=== PATIENT | male | born 1950 | race Caucasian/White ===

== ENCOUNTER → 2016-07-25 | Outpatient (CLI) | payer BC ==
[~2016-07-25] MED LIST: DOXY-278 PO; PERCOCET PO
[2016-07-25 09:40] LABS: MEAN CORPUSCULAR HEMOGLOBIN 31.6 pg (27.0-33.0); MEAN CORPUSCULAR HGB CONC 35.1 g/dl (32.0-36.5); MEAN CORPUSCULAR VOLUME 90.2 fl (80.0-96.0); RED CELL DISTRIBUTION WIDTH 12.7 % (11.5-14.5); WHITE BLOOD COUNT 6.3 K/mm3 (4.0-10.0)
[2016-07-25 10:07] LABS: ALBUMIN 3.6 GM/DL (3.2-5.2); ALBUMIN/GLOBULIN RATIO 1.09 (1.00-1.93); ALKALINE PHOSPHATASE 116 U/L (45-117); ALT/SGPT 19 U/L (12-78); ANION GAP 9 MEQ/L (8-16); AST/SGOT 16 U/L (15-37); BILIRUBIN,TOTAL 0.5 MG/DL (0.2-1.0); BLOOD UREA NITROGEN 11 MG/DL (7-18); CALCIUM LEVEL 8.3 MG/DL (8.8-10.2); CARBON DIOXIDE LEVEL 27 MEQ/L (21-32); CHLORIDE LEVEL 107 MEQ/L (98-107); CHOLESTEROL LEVEL 131 MG/DL (<200); CREATININE FOR GFR 0.76 MG/DL (0.70-1.30); GLOMERULAR FILTRATION RATE > 60.0 (>49); GLUCOSE, FASTING 157 MG/DL (80-110); POTASSIUM SERUM 3.8 MEQ/L (3.5-5.1); SODIUM LEVEL 143 MEQ/L (136-145); TOTAL PROTEIN 6.9 GM/DL (6.4-8.2); TRIGLYCERIDES LEVEL 93 MG/DL (<150)
== END ==
LOC: M LAB 09:26
PROVIDERS: ATTEND Family Medicine
DX: I25.84 Coronary atherosclerosis due to calcified coronary lesion (principal)

== ENCOUNTER → 2016-10-25 | Outpatient (CLI) | payer BC ==
[2016-10-25 15:18] LABS: ANION GAP 7 MEQ/L (8-16); BLOOD UREA NITROGEN 16 MG/DL (7-18); CALCIUM LEVEL 8.9 MG/DL (8.8-10.2); CARBON DIOXIDE LEVEL 29 MEQ/L (21-32); CHLORIDE LEVEL 105 MEQ/L (98-107); CREATININE FOR GFR 0.77 MG/DL (0.70-1.30); GLOMERULAR FILTRATION RATE > 60.0 (>49); GLUCOSE, FASTING 180 MG/DL (80-110); POTASSIUM SERUM 4.7 MEQ/L (3.5-5.1); SODIUM LEVEL 141 MEQ/L (136-145)
== END ==
LOC: M SMT 07:52
PROVIDERS: ATTEND Family Medicine
DX: E11.65 Type 2 diabetes mellitus with hyperglycemia (principal)

== ENCOUNTER → 2016-12-08 | Outpatient (REF) | payer BC ==
[2016-12-08 13:59] LABS: ANION GAP 8 MEQ/L (8-16); BLOOD UREA NITROGEN 14 MG/DL (7-18); CALCIUM LEVEL 9.1 MG/DL (8.8-10.2); CARBON DIOXIDE LEVEL 26 MEQ/L (21-32); CHLORIDE LEVEL 101 MEQ/L (98-107); CREATININE FOR GFR 0.72 MG/DL (0.70-1.30); GLOMERULAR FILTRATION RATE > 60.0 (>49); GLUCOSE, FASTING 278 MG/DL (80-110); MAGNESIUM LEVEL 2.3 MG/DL (1.8-2.4); POTASSIUM SERUM 4.2 MEQ/L (3.5-5.1); SODIUM LEVEL 135 MEQ/L (136-145)
== END ==
LOC: M SFHCPLAZ 11:40
PROVIDERS: ATTEND Family Medicine
DX: E11.65 Type 2 diabetes mellitus with hyperglycemia (principal); R35.0 Frequency of micturition

== ENCOUNTER → 2016-12-22 | Outpatient (REF) | payer BC | LOC: M SFHCLERA 15:36 | PROVIDERS: ATTEND Nurse Practitioner Family | DX: R10.32 Left lower quadrant pain (principal) ==

== ENCOUNTER → 2016-12-25 | Outpatient (CLI) | payer BC ==
--- NOTE | 2016-12-25 10:27 | REP ---
Left hip two views: There are no comparisons. There is a crescentic calcification inferior to the left femoral head, possibly an a avulsion of the inferior acetabular cortex. This should be correlated with clinical point tenderness. CT might be considered for confirmation. The femoral head and neck are otherwise unremarkable. No other evidence of fracture or dislocation. Mineralization is normal. Impression: Possible avulsion of the left acetabulum inferiorly. Correlate with clinical point tenderness. Consider CT for confirmation. Signed by Clifford Alexis MD 12/25/2016 10:18 A
== END ==
LOC: M ADAMS 09:53
PROVIDERS: ATTEND Physician Assistant Medical
DX: M25.552 Pain in left hip (principal); R93.7 Abnormal findings on diagnostic imaging of other parts of musculoskeletal system

== ENCOUNTER → 2017-02-06 | Outpatient (CLI) | payer BC ==
[2017-02-06 10:23] LABS: ANION GAP 7 MEQ/L (8-16); BLOOD UREA NITROGEN 14 MG/DL (7-18); CALCIUM LEVEL 8.4 MG/DL (8.8-10.2); CARBON DIOXIDE LEVEL 30 MEQ/L (21-32); CHLORIDE LEVEL 105 MEQ/L (98-107); CREATININE FOR GFR 0.77 MG/DL (0.70-1.30); GLOMERULAR FILTRATION RATE > 60.0 (>49); GLUCOSE, FASTING 156 MG/DL (80-110); POTASSIUM SERUM 3.9 MEQ/L (3.5-5.1); SODIUM LEVEL 142 MEQ/L (136-145)
== END ==
LOC: M LAB 09:47
PROVIDERS: ATTEND Family Medicine
DX: E11.65 Type 2 diabetes mellitus with hyperglycemia (principal)

== ENCOUNTER → 2017-07-11 | Outpatient (CLI) | payer BC, MEDICARE ==
[2017-07-11 13:17] LABS: ANION GAP 7 MEQ/L (8-16); BLOOD UREA NITROGEN 12 MG/DL (7-18); CALCIUM LEVEL 8.5 MG/DL (8.8-10.2); CARBON DIOXIDE LEVEL 30 MEQ/L (21-32); CHLORIDE LEVEL 105 MEQ/L (98-107); CREATININE FOR GFR 0.62 MG/DL (0.70-1.30); GLOMERULAR FILTRATION RATE > 60.0 (>49); GLUCOSE, FASTING 184 MG/DL (70-100); POTASSIUM SERUM 4.2 MEQ/L (3.5-5.1); SODIUM LEVEL 142 MEQ/L (136-145)
[2017-07-11 13:26] LABS: ESTIMATED AVERAGE GLUCOSE 255 MG/DL (60-110); HEMOGLOBIN A1c 10.5 %
== END ==
LOC: M SMT 08:33
DX: E11.65 Type 2 diabetes mellitus with hyperglycemia (principal)
CPT/HCPCS: 83036

== ENCOUNTER → 2017-10-03 | Outpatient (CLI) | payer MEDICARE, BC ==
[2017-10-03 14:03] LABS: HEMATOCRIT 44.8 % (42.0-52.0); HEMOGLOBIN 15.5 g/dl (13.5-17.5); MEAN CORPUSCULAR HEMOGLOBIN 31.8 pg (27.0-33.0); MEAN CORPUSCULAR HGB CONC 34.6 g/dl (32.0-36.5); MEAN CORPUSCULAR VOLUME 91.8 fl (80.0-96.0); PLATELET COUNT, AUTOMATED 219 10^3/uL (150-450); RED BLOOD COUNT 4.88 10^6/uL (4.30-6.10); RED CELL DISTRIBUTION WIDTH 12.9 % (11.5-14.5); WHITE BLOOD COUNT 7.3 10^3/uL (4.0-10.0)
[2017-10-03 14:45] LABS: ESTIMATED AVERAGE GLUCOSE 226 MG/DL (60-110); HEMOGLOBIN A1c 9.5 %
[2017-10-03 14:53] LABS: ALBUMIN/GLOBULIN RATIO 1.14 (1.00-1.93); ALKALINE PHOSPHATASE 128 U/L (45-117); ALT/SGPT 22 U/L (12-78); ANION GAP 8 MEQ/L (8-16); AST/SGOT 13 U/L (7-37); BILIRUBIN,TOTAL 0.6 MG/DL (0.2-1.0); BLOOD UREA NITROGEN 17 MG/DL (7-18); CALCIUM LEVEL 8.7 MG/DL (8.8-10.2); CARBON DIOXIDE LEVEL 27 MEQ/L (21-32); CHLORIDE LEVEL 105 MEQ/L (98-107); CHOLESTEROL LEVEL 139 MG/DL (<200); CHOLESTEROL RISK RATIO 3.021 (<5); CREATININE FOR GFR 0.88 MG/DL (0.70-1.30); GLOMERULAR FILTRATION RATE > 60.0 (>49); GLUCOSE, FASTING 288 MG/DL (70-100); HDL CHOLESTEROL 46 MG/DL (>40); LDL CHOLESTEROL 65.2 MG/DL (<100); NON-HDL-C 93 MG/DL; SODIUM LEVEL 140 MEQ/L (136-145); TOTAL PROTEIN 7.5 GM/DL (6.4-8.2); TRIGLYCERIDES LEVEL 139 MG/DL (<150)
== END ==
LOC: M SMT 08:13
DX: K21.9 Gastro-esophageal reflux disease without esophagitis (principal); E11.65 Type 2 diabetes mellitus with hyperglycemia; E78.2 Mixed hyperlipidemia
CPT/HCPCS: 80053

== ENCOUNTER → 2018-04-17 | Outpatient (CLI) | payer MEDICARE, BC ==
[2018-04-17 10:36] LABS: ESTIMATED AVERAGE GLUCOSE 209 MG/DL (60-110); HEMOGLOBIN A1c 8.9 %
[2018-04-17 10:45] LABS: ANION GAP 8 MEQ/L (8-16); BLOOD UREA NITROGEN 13 MG/DL (7-18); CALCIUM LEVEL 8.9 MG/DL (8.8-10.2); CARBON DIOXIDE LEVEL 31 MEQ/L (21-32); CHLORIDE LEVEL 103 MEQ/L (98-107); CREATININE FOR GFR 0.77 MG/DL (0.70-1.30); GLOMERULAR FILTRATION RATE > 60.0 (>49); GLUCOSE, FASTING 207 MG/DL (70-100); POTASSIUM SERUM 4.7 MEQ/L (3.5-5.1); PSA SCREENING 0.7 NG/ML (< 4.0); SODIUM LEVEL 142 MEQ/L (136-145)
== END ==
LOC: M SMT 08:02
DX: Z12.5 Encounter for screening for malignant neoplasm of prostate (principal); E11.65 Type 2 diabetes mellitus with hyperglycemia
CPT/HCPCS: 83036

== ENCOUNTER → 2018-07-24 | Outpatient (REF) | payer MEDICARE, BC ==
[~2018-07-24] MED LIST changes: +ACYC200C8 PO; +ASPI1TAB PO; +ATOR80TA59 PO; +BASA100I SC; -DOXY-278 PO; +DOXY-350 PO; +JANU100T PO; +LOSA25TA14 PO; +METF-882 PO; +PANT40TA3 PO; +VICT18IN SC
== END ==
LOC: M LAB REF 18:30
PROVIDERS: ATTEND Physician Assistant
DX: J02.9 Acute pharyngitis, unspecified (principal)

== ENCOUNTER → 2018-07-26 | Outpatient (CLI) | payer MEDICARE, BC ==
[2018-07-26 10:22] LABS: BLOOD UREA NITROGEN 13 MG/DL (7-18); CALCIUM LEVEL 9.3 MG/DL (8.8-10.2); CARBON DIOXIDE LEVEL 31 MEQ/L (21-32); CHLORIDE LEVEL 105 MEQ/L (98-107); CREATININE FOR GFR 0.75 MG/DL (0.70-1.30); GLOMERULAR FILTRATION RATE > 60.0 (>49); GLUCOSE, FASTING 163 MG/DL (70-100); POTASSIUM SERUM 4.6 MEQ/L (3.5-5.1); SODIUM LEVEL 140 MEQ/L (136-145)
[2018-07-26 10:46] LABS: HEMOGLOBIN A1c 8.5 %
== END ==
LOC: M SMT 07:52
PROVIDERS: ATTEND Family Medicine
DX: E11.65 Type 2 diabetes mellitus with hyperglycemia (principal)

== ENCOUNTER 2018-08-16 11:45 | Day surgery (SDC) | payer MEDICARE, BC ==
[~2018-08-16] VITALS: Ht 172.7 cm; Wt 93.6 kg
[~2018-08-16 11:45] MED LIST changes: -ASPI1TAB PO; +ASPI81TA26 PO; +LIDOCAINE 2% INJ 100 MG/5 ML SDV (FOR ANES.) As Ordered ONE; +NS 1,000 ML IV ONE; +PROPOFOL 200 MG/20 ML VIAL As Ordered ONE; +fentaNYL 100 MCG/2 ML INJECTION (J3010) As Ordered ONE
--- NOTE | 2018-08-16 11:46 | ROOR ---
Patient Name: Varun Valencia Procedure Date: 08/16/2018 11:16 AM Date of : 1950 Age: 68 Room: [facility] Gender: Male Note Status: Finalized Procedure: Upper Endoscopy + Biopsies Indications: Heartburn Providers: Brian Magaña MD Referring MD: Filemon Sorenson MD Requesting Provider: Medicines: Monitored Anesthesia Care Complications: No immediate complications. Procedure: Pre-Anesthesia Assessment: - The heart rate, respiratory rate, oxygen saturations, blood pressure, adequacy of pulmonary ventilation, and response to care were monitored throughout the procedure. The Endoscope was introduced through the mouth, and advanced to the second part of duodenum. The upper GI endoscopy was accomplished without difficulty. The patient tolerated the procedure well. Findings: The Z-line was regular and was found 41 cm from the incisors. Multiple biopsies were obtained with cold forceps for evaluation to rule out Munoz's Esophagus randomly at the gastroesophageal junction. A small hiatal hernia was present. Localized mild inflammation characterized by congestion (edema) and erythema was found in the gastric antrum. Biopsies were taken with a cold forceps for Helicobacter pylori testing. The exam of the duodenum was otherwise normal. Impression: - Z-line regular, 41 cm from the incisors. - Small hiatal hernia. - Mucosal changes suspicious for gastritis. Biopsied. - Multiple biopsies were obtained at the gastroesophageal junction. - The examination was otherwise normal. Recommendation: - Patient has a contact number available for emergencies. The signs and symptoms of potential delayed complications were discussed with the patient. Return to normal activities tomorrow. Written discharge instructions were provided to the patient. - High fiber diet. - Discharge patient to home. - Continue present medications. - Await pathology results. - Telephone GI clinic for pathology results in 1 week. - Check Portal Online for Path Results.([email or web address] - Return to referring physician. - The findings and recommendations were discussed with the patient's family. Brian Magaña MD Brian Magaña MD 08/16/2018 11:45:59 AM Electronically signed by Brian Magaña MD Number of Addenda: 0 Note Initiated On: 08/16/2018 11:16 AM Estimated Blood Loss: Estimated blood loss: none.
--- NOTE | 2018-08-16 11:48 | ROOR ---
Patient Name: Varun Valencia Procedure Date: 08/16/2018 11:23 AM Date of : 1950 Age: 68 Room: [facility] Gender: Male Note Status: Finalized Procedure: Total Colonoscopy to Cecum + Biopsy Polypectomy Indications: Screening for colorectal malignant neoplasm Providers: Brian Magaña MD Referring MD: Filemon Sorenson MD Requesting Provider: Medicines: Monitored Anesthesia Care Complications: No immediate complications. Procedure: Pre-Anesthesia Assessment: - The heart rate, respiratory rate, oxygen saturations, blood pressure, adequacy of pulmonary ventilation, and response to care were monitored throughout the procedure. The Colonoscope was introduced through the anus and advanced to the cecum, identified by appendiceal orifice and ileocecal valve. The colonoscopy was performed without difficulty. The patient tolerated the procedure well. The quality of the bowel preparation was excellent. Findings: The perianal and digital rectal examinations were normal. Non-bleeding internal hemorrhoids were found during retroflexion. The hemorrhoids were small and Grade I (internal hemorrhoids that do not prolapse). Multiple small and large-mouthed diverticula were found in the recto-sigmoid colon, sigmoid colon and descending colon. A small polyp was found at 20 cm proximal to the anus. The polyp was sessile. The polyp was removed with a jumbo cold forceps. Resection was complete, but the polyp tissue was not retrieved. The exam was otherwise without abnormality on direct and retroflexion views. Impression: - Non-bleeding internal hemorrhoids. - Diverticulosis in the recto-sigmoid colon, in the sigmoid colon and in the descending colon. - One small polyp at 20 cm proximal to the anus, removed with a jumbo cold forceps. Resected and retrieved. - The examination was otherwise normal on direct and retroflexion views. - The exam was otherwise normal to the cecum. Recommendation: - Patient has a contact number available for emergencies. The signs and symptoms of potential delayed complications were discussed with the patient. Return to normal activities tomorrow. Written discharge instructions were provided to the patient. - High fiber diet. - Discharge patient to home. - Continue present medications. - Await pathology results. - Telephone GI clinic for pathology results in 1 week. - Repeat colonoscopy in 10 years for surveillance. Brian Magaña MD Brian Magaña MD 08/16/2018 11:48:39 AM Electronically signed by Brian Magaña MD Number of Addenda: 0 Note Initiated On: 08/16/2018 11:23 AM Estimated Blood Loss: Estimated blood loss: none.
[2018-08-16 12:12] VITALS: BP 118/74
== END 2018-08-16 14:30 | disposition home or self-care (01) ==
LOC: M OPP 11:45
PROVIDERS: ATTEND Internal Medicine Gastroenterology
DX: K64.0 First degree hemorrhoids (principal); K57.30 Diverticulosis of large intestine without perforation or abscess without bleeding; D12.6 Benign neoplasm of colon, unspecified; Z12.11 Encounter for screening for malignant neoplasm of colon; K44.9 Diaphragmatic hernia without obstruction or gangrene; K29.70 Gastritis, unspecified, without bleeding; R12 Heartburn
CPT/HCPCS: 43239; 45380; 88305; J3010

== ENCOUNTER → 2018-09-11 | Outpatient (CLI) | payer MEDICARE, BC ==
[~2018-09-11] MED LIST changes: -LIDOCAINE 2% INJ 100 MG/5 ML SDV (FOR ANES.) As Ordered ONE; -NS 1,000 ML IV ONE; -PROPOFOL 200 MG/20 ML VIAL As Ordered ONE; -fentaNYL 100 MCG/2 ML INJECTION (J3010) As Ordered ONE
[2018-09-11 09:56] LABS: BASO # 0.1 10^3/uL (0.0-0.2); BASO % 0.9 % (0.0-1.0); EOS # 0.4 10^3/uL (0.0-0.50); HEMATOCRIT 41.5 % (42.0-52.0); HEMOGLOBIN 14.1 g/dl (13.5-17.5); LYMPH % 26.3 % (24.0-44.0); MEAN CORPUSCULAR HEMOGLOBIN 31.1 pg (27.0-33.0); MEAN CORPUSCULAR VOLUME 91.4 fl (80.0-96.0); MONO # 0.7 10^3/uL (0.0-0.8); MONO % 8.5 % (0.0-5.0); NEUTROPHILS # 4.5 10^3/uL (1.8-7.7); NEUTROPHILS % 58.9 % (36.0-66.0); PLATELET COUNT, AUTOMATED 200 10^3/uL (150-450); RED BLOOD COUNT 4.54 10^6/uL (4.30-6.10); WHITE BLOOD COUNT 7.7 10^3/uL (4.0-10.0)
[2018-09-11 10:22] LABS: BLOOD UREA NITROGEN 15 MG/DL (7-18); CALCIUM LEVEL 8.5 MG/DL (8.8-10.2); CARBON DIOXIDE LEVEL 27 MEQ/L (21-32); CHLORIDE LEVEL 105 MEQ/L (98-107); CREATININE FOR GFR 0.77 MG/DL (0.70-1.30); GLOMERULAR FILTRATION RATE > 60.0 (>49); GLUCOSE, FASTING 242 MG/DL (70-100); POTASSIUM SERUM 4.4 MEQ/L (3.5-5.1); SODIUM LEVEL 139 MEQ/L (136-145)
== END ==
LOC: M LAB 08:11
PROVIDERS: ATTEND Family Medicine
DX: I25.119 Atherosclerotic heart disease of native coronary artery with unspecified angina pectoris (principal)

== ENCOUNTER → 2018-12-06 | Outpatient (CLI) | payer MEDICARE, BC ==
[~2018-12-06] MED LIST changes: +CARV6.25 PO; +NITR0.4S14 SL; +PLAV1TAB2 PO
[2018-12-06 12:13] LABS: HEMATOCRIT 45.1 % (42.0-52.0); MEAN CORPUSCULAR HEMOGLOBIN 30.8 pg (27.0-33.0); MEAN CORPUSCULAR HGB CONC 33.3 g/dl (32.0-36.5); MEAN CORPUSCULAR VOLUME 92.6 fl (80.0-96.0); PLATELET COUNT, AUTOMATED 210 10^3/uL (150-450); RED BLOOD COUNT 4.87 10^6/uL (4.30-6.10); WHITE BLOOD COUNT 8.4 10^3/uL (4.0-10.0)
[2018-12-06 12:22] LABS: HEMOGLOBIN A1c 9.5 %
[2018-12-06 12:36] LABS: ALBUMIN 3.6 GM/DL (3.2-5.2); ALT/SGPT 22 U/L (12-78); BILIRUBIN,TOTAL 0.3 MG/DL (0.2-1.0); BLOOD UREA NITROGEN 12 MG/DL (7-18); CALCIUM LEVEL 9.4 MG/DL (8.8-10.2); CARBON DIOXIDE LEVEL 28 MEQ/L (21-32); CHLORIDE LEVEL 102 MEQ/L (98-107); CHOLESTEROL LEVEL 138 MG/DL (<200); CHOLESTEROL RISK RATIO 3.285 (<5); CREATININE FOR GFR 0.79 MG/DL (0.70-1.30); FREE T4 0.92 NG/DL (0.76-1.46); GLOMERULAR FILTRATION RATE > 60.0 (>49); GLUCOSE, FASTING 220 MG/DL (70-100); HDL CHOLESTEROL 42 MG/DL (>40); LDL CHOLESTEROL 54 MG/DL (<100); NON-HDL-C 96 MG/DL; POTASSIUM SERUM 4.7 MEQ/L (3.5-5.1); SODIUM LEVEL 138 MEQ/L (136-145); TOTAL PROTEIN 7.1 GM/DL (6.4-8.2); TRIGLYCERIDES LEVEL 211 MG/DL (<150)
[2018-12-07 14:07] LABS: TESTOSTERONE FREE (DIRECT) 5.9 pg/mL (6.6-18.1)
== END ==
LOC: M SMT 08:02
PROVIDERS: ATTEND Family Medicine
DX: N52.9 Male erectile dysfunction, unspecified (principal); E78.2 Mixed hyperlipidemia; E11.65 Type 2 diabetes mellitus with hyperglycemia; I25.84 Coronary atherosclerosis due to calcified coronary lesion

== ENCOUNTER 2019-01-11 11:08 | Outpatient (RCR) | payer MEDICARE, BC ==
--- NOTE | 2018-12-14 09:28 | CARECAPL ---
Assessment Account #s: Initial Assessment General Diagnoses: Stent, AVR Date of event: Oct 16, 2018 Physician: Kalpesh Mcmullen Allergies: Coded Allergies: No Known Allergies (Unverified , 08/16/18) Date Entered Program: Dec 14, 2018 Risk strat for cardiac event: High Exercise Prescription Plan educate and increase endurance, flexibility and strength through monitored exercise. Modalities initiated: Treadmill (will add speed 1.8 for 10 minutes), Nustep (will add level 1 for 10 minutes), Arm Aerometer (will add resistance 1.0 for 8 minutes), Dumbells (will add 1lb 2 set 6-8 rep), Recumbent Bike (will add resistance of 1 for 5 minutes) Frequency: 2-3 Duration (Minutes) 30-60 minutes total exercise a day. 15-20 work intervals in minutes. prn rest intervals in minutes. Functional Capacity Goal Sustained Metabolic Equivalent of a task (MET) goal of 2.5-3.5 for 15-20 minutes. Intensity: 3-Moderate Progression (METS) Increase by: 0.5 METS every: 3-5 sessions Angina with ex: No Target Heart Rate rest + 35-40 per beta francisco j therapy. Resistance Training: Yes Weight (pounds): 1 Reps: 6-8 Hypertension: Yes Hypertension controlled with: Medication Resting 116/78 Meds carvedilol Medications Scheduled Acyclovir (Acyclovir), 400 MG PO DAILY, (Reported) Aspirin (Aspirin EC), 81 MG PO DAILY, (Reported) Atorvastatin Calcium (Atorvastatin Calcium), 80 MG PO DAILY, (Reported) Carvedilol (Carvedilol), 6.25 MG PO BID, (Reported) Clopidogrel Bisulfate (Plavix), 75 MG PO DAILY, (Reported) Insulin Glargine,Hum.rec.anlog (Basaglar Kwikpen U-100), 50 UNIT SC DAILY, (Reported) Losartan Potassium (Losartan Potassium), 25 MG PO DAILY, (Reported) Metformin HCl (Metformin ER Osmotic), 1,000 MG PO QAM, (Reported) Metformin HCl (Metformin ER Osmotic), 1,000 MG PO QHS, (Reported) Nitroglycerin (Nitroglycerin), 0.4 MG SL ASDIRECTED, (Reported) Pantoprazole Sodium (Pantoprazole Sodium), 40 MG PO DAILY, (Reported) Sitagliptin Phosphate (Januvia), 100 MG PO DAILY, (Reported) Discontinued Medications Liraglutide (Victoza 2-Kun), 1.2 MG SC DAILY, (Reported) Discontinued Reason: Pt states not taking Target Goals Individual exercise Rx (1) BP 140/90 or 130/80 if DM or CKD (1) Aerobic active 30+min 5 days per week (1) Nutrition Date: Dec 14, 2018 Assessment: Initial Assessment Lipids Total Cholesterol (138), High Density Lipids (HDL) (96), Low Density Lipids (LDL) (54), Triglycerides (211), Lipid med/supplement (atorvastatin 80 mg) Lipid- med/supplement atorvastatin Diabetes Diabetes: Yes Fasting Blood Sugar: 168 HbA1c (%): 9.5 Diabetes medication januvia 100mg daily, metformin 1000mg bid, glargine insulin 50 units daily Monitor Blood Sugar at home: Yes Frequency bid Weight Management Weight (lbs): 204.6 Height (inches): 68 Waist Circumference (Inches): 45 BMI: 31.01 Weight goal: 160 Special Diet: mediteranean diet Alcohol: special Alcohol Type: beer, wine Alcohol Amount: 2 Diet Access Tool: Rate your plate Score: 46 Referral to Diabetes education: No Referral to lipid clinic: No Referral to weight mangement p: No Target goal LDL-C<100 if triglycerides are >200 Non-HDL-C should be <130 (1) LDL-C<70 for high risk patients (4) HbA1c<7% (1) BMI<25 Waist cir<40in M/<35in F (1) Education Date: Dec 14, 2018 Assessment: Initial Assessment Learning Barriers: ready Knowledge Test Score: 9 Family Support: Yes Tobacco use: Yes Quit: >6 months (40 years ago quit cigarettes but does still smoke a pipe occasionally) Intervention Referral to smoking cessation: Yes Individual education and couns: No Tobacco Adjunct: No Education class schedule given: No Attended education classes: No Target Goals Complete cessation of tobacco use (1). Psychosocial Date: Dec 14, 2018 Assessment: Initial Assessment Psych Test (Initial/Discharge) Tool Used: CESD Score: 14 Intervention Physician Consult: No Physician Referral: No Psychotropic medication none Target Goal Assess presence or absence of depression using a valid screening tool (1). Maximize coping skills (2). Positive support system (2). Patient/Program Goal Preventative Medication: Yes Aspirin, Yes Clopidogrel, Yes Beta blockade, Yes Statin/OTR lipid Lowering, Yes Other (angiotensin receptor francisco j) Fall Risk Assess: Yes (no fall risk) Provider Assessment Provider Assessment: Proceed with rehab Soo De León RN Dec 14, 2018 09:27
--- NOTE | 2019-01-08 17:18 | CARECAPL ---
Assessment Account #s: Re-Assessment I General Diagnoses: Stent, AVR Date of event: Oct 16, 2018 Physician: Kalpesh Mcmullen Allergies: Coded Allergies: No Known Allergies (Unverified , 08/16/18) Date Entered Program: Dec 14, 2018 Risk strat for cardiac event: High Exercise Date: Jan 08, 2019 Assessment: Re-Assessment I Stages of change: Preperation Exercise Prescription Plan TO EDUCATE AND BUILD ENDURANCE THROUGH MONITORED EXERCISE Modalities initiated: Treadmill (METS=3.53/RPE=3), Nustep (METS=3.1/RPE=3), Arm Aerometer (METS=2.5/RPE=3), Dumbells (2#/RPE=3), Recumbent Bike (METS=3.7/RPE=3) Frequency: 3 Duration (Minutes) 30-60 minutes total exercise a day. 15-20 work intervals in minutes. 5 MIN PRN rest intervals in minutes. Functional Capacity Goal Sustained Metabolic Equivalent of a task (MET) goal of 3.5-4.5 for 15-20 minutes. Intensity: 3-Moderate Progression (METS) Increase by: METS every: sessions Angina with ex: No Target Heart Rate REST +35-40 BASED ON BETA ANNITA THERAPY Resistance Training: Yes Weight (pounds): 2 Reps: 12-15 Hypertension: Yes Hypertension controlled with: Medication Resting 142/78 Peak Exercise BP 170/90 Meds CARVEDILOL Medications Scheduled Acyclovir (Acyclovir), 400 MG PO DAILY, (Reported) Aspirin (Aspirin EC), 81 MG PO DAILY, (Reported) Atorvastatin Calcium (Atorvastatin Calcium), 80 MG PO DAILY, (Reported) Carvedilol (Carvedilol), 6.25 MG PO BID, (Reported) Clopidogrel Bisulfate (Plavix), 75 MG PO DAILY, (Reported) Insulin Glargine,Hum.rec.anlog (Basaglar Kwikpen U-100), 50 UNIT SC DAILY, (Reported) Losartan Potassium (Losartan Potassium), 25 MG PO DAILY, (Reported) Metformin HCl (Metformin ER Osmotic), 1,000 MG PO QAM, (Reported) Metformin HCl (Metformin ER Osmotic), 1,000 MG PO QHS, (Reported) Nitroglycerin (Nitroglycerin), 0.4 MG SL ASDIRECTED, (Reported) Pantoprazole Sodium (Pantoprazole Sodium), 40 MG PO DAILY, (Reported) Sitagliptin Phosphate (Januvia), 100 MG PO DAILY, (Reported) Current BP 130/80 Intervention Resistance Training: Yes Education: Self pulse (PATIENT DEMONSTRATES TAKING SELF PULSE), Ex safety (PATIENT STATES UNDERSTANDING OF SAFE EXERCISE, REPORTING CHEST PAIN,WARM UP/COOL DOWN), S/S to report (PATIENT VERBALIZES UNDERSTANDING TO REPORT CHEST PAIN/SOB), Low NA diet (VERBALIZES UNDERSTANDING OF LOW NA DIET,NOT ADDING SALT TO FOOD), BP medication (REVIEWED CARVEDILOL ACTIONS WITH PATIENT), RPE Scale (DEMONSTRATES EFFORT SCALE INDEPENTLY), Equipment orientation (PATIENT USES EXERCISE EQUIPMENT WITH MINIMAL ASSISTANCE), warm up/cool down (DEMONSTRATES INDEPENDENTLY WARM UP AND COOL DOWN), Understand BP (PT VERBALIZES UNDERSTANDING OF B/P AND IDEAL B/P <120/80), Physical Active (PT VERBALIZES KNOWLEDGE OF IMPORTANCE OF CONTINUED EXERCISE FOLLOWING CARDIAC REHAB PROGRAM) Target Goals Individual exercise Rx (1) BP 140/90 or 130/80 if DM or CKD (1) Aerobic active 30+min 5 days per week (1) Nutrition Date: Jan 08, 2019 Assessment: Re-Assessment I Lipid- med/supplement ATORVASTATIN 80 MG DAILY Med Change: No Diabetes Diabetes: Yes Fasting Blood Sugar: 157 Diabetes medication JANUVIA 100 MG DAILY, METFORMIN 1000 MG BID, GLARGINE INSULIN 50 UNITS DAILY Monitor Blood Sugar at home: Yes Frequency BID Weight Management Weight (lbs): 207.4 Weight goal: 160 Special Diet: mediteranean diet Alcohol: special (BEER AND WINE) Alcohol Type: beer, wine Alcohol Amount: 2 Current Weight (pounds): 207.4 Weight Goal 160 Intervention Test Automation Architect Consult: No Nurse/patient discussion: Yes Dietary Goals HEART HEALTHY CHOICES,SMALLER PORTIONS Diet Class: Yes (WILL SEE GEAR GRINDING MACHINE 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) Referral to Diabetes education: No Referral to lipid clinic: No Referral to weight mangement p: No Education S&S hypo/hyper glycemia, Relate Diabetes in CAD, Eating Healthy Target goal LDL-C<100 if triglycerides are >200 Non-HDL-C should be <130 (1) LDL-C<70 for high risk patients (4) HbA1c<7% (1) BMI<25 Waist cir<40in M/<35in F (1) Education Date: Jan 08, 2019 Assessment: Re-Assessment I Learning Barriers: ready Family Support: Yes Tobacco use: No Quit: >6 months Tobacco Use Smokeless tobacco: No Intervention Referral to smoking cessation: No Individual education and couns: No Tobacco Adjunct: No Education class schedule given: No Attended education classes: No Education: tobacco triggers, CAD, Risk factors (SMOKING/ALCOHOL), med compliance (PT STATES UNDERSTANDING OF IMPORTANCE OF COMPLIANCE WITH ALL MEDICATIONS), cardiac A&P, Angina S/S, Sexuality Target Goals Complete cessation of tobacco use (1). Psychosocial Date: Jan 08, 2019 Assessment: Re-Assessment I Intervention Physician Consult: No Physician Referral: No Med Change: No Stress Management Class: No Uses Stress Management Skills: Yes Education Education: Coping Techniques, S/S depression, Relaxation Techniques Target Goal Assess presence or absence of depression using a valid screening tool (1). Maximize coping skills (2). Positive support system (2). Patient/Program Goal Preventative Medication: Yes Aspirin, Yes Clopidogrel, Yes Beta blockade, Yes Statin/OTR lipid Lowering, Yes Other (ANGIOTENSIN RECEPTOR ANNITA) Provider Assessment Session Number: 4 Provider Assessment: Proceed with rehab Brian Morris RN Jan 08, 2019 17:18
== END 2019-01-13 ==
LOC: M CR 11:08
PROVIDERS: ATTEND Internal Medicine Cardiovascular Disease
DX: Z95.3 Presence of xenogenic heart valve (principal)

== ENCOUNTER → 2019-02-12 | Outpatient (RCR) | payer MEDICARE, BC | LOC: M PT 01-25 09:48 | PROVIDERS: ATTEND Family Medicine | DX: Z95.3 Presence of xenogenic heart valve (principal) ==

== ENCOUNTER → 2019-02-12 | Outpatient (RCR) | payer MEDICARE, BC ==
--- NOTE | 2019-01-29 11:19 | CARECAPL ---
Assessment Account #s: Re-Assessment II General Diagnoses: Stent, AVR Date of event: Oct 16, 2018 Physician: Kalpesh Mcmullen Allergies: Coded Allergies: No Known Allergies (Unverified , 08/16/18) Date Entered Program: Dec 14, 2018 Risk strat for cardiac event: High Exercise Date: Jan 29, 2019 Assessment: Re-Assessment II (2.8/2.0 mts 3.91 rpe 2.5 15 minutes) Exercise Prescription Modalities initiated: Nustep (L8 Mts 3.0 rpe 3 15 minutes), Arm Aerometer (3.5 mts 3.8 rpe 2.5 10 minutes), Dumbells, Recumbent Bike (R3 mts 2.7 rpe 2 10 minutes) Duration (Minutes) 30 - 60 minutes total exercise a day. 15 - 20 work intervals in minutes. PRN rest intervals in minutes. Functional Capacity Goal Sustained Metabolic Equivalent of a task (MET) goal of 3.5-4.5 for 15-20 minutes. Progression (METS) Increase by: METS every: sessions Angina with ex: No Resistance Training: Yes Weight (pounds): 4 Reps: 6-8 Hypertension: Yes Hypertension controlled with: Other (exercise) Resting 130/70 Peak Exercise BP 150/90 Meds see below Medications Scheduled Acyclovir (Acyclovir), 400 MG PO DAILY, (Reported) Aspirin (Aspirin EC), 81 MG PO DAILY, (Reported) Atorvastatin Calcium (Atorvastatin Calcium), 80 MG PO DAILY, (Reported) Clopidogrel Bisulfate (Plavix), 75 MG PO DAILY, (Reported) Insulin Glargine,Hum.rec.anlog (Basaglar Kwikpen U-100), 50 UNIT SC DAILY, (Reported) Losartan Potassium (Losartan Potassium), 25 MG PO DAILY, (Reported) Metformin HCl (Metformin ER Osmotic), 1,000 MG PO QAM, (Reported) Metformin HCl (Metformin ER Osmotic), 1,000 MG PO QHS, (Reported) Nitroglycerin (Nitroglycerin), 0.4 MG SL ASDIRECTED, (Reported) Pantoprazole Sodium (Pantoprazole Sodium), 40 MG PO DAILY, (Reported) Sitagliptin Phosphate (Januvia), 100 MG PO DAILY, (Reported) Current BP 144/70 after exercise Med Change: No Intervention Home exercise: Type (walking,lifting weights, join local gym), Frequency (3-5 times per week), Duration (30-60 minutes to include warmup and cool down) Resistance Training: Yes Education Goals Met: No (all education covered on last ITP- education continued throughout program. 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 Psychosocial Date: Jan 29, 2019 Assessment: Re-Assessment II Stress Management Class: Yes Uses Stress Management Skills: Yes Education Goals Met: Yes (very receptive to program, works hard and has good attitude toward health, exercise and life) Target Goal Assess presence or absence of depression using a valid screening tool (1). Maximize coping skills (2). Positive support system (2). Fall Risk Assess: No Provider Assessment Session Number: 12 Provider Assessment: No changes (good attendance) Kristal Torrez RN Jan 29, 2019 11:19
== END ==
LOC: M CR 01-18 08:17
PROVIDERS: ATTEND Internal Medicine Cardiovascular Disease
DX: Z95.3 Presence of xenogenic heart valve (principal)

== ENCOUNTER 2019-03-12 11:17 | Outpatient (RCR) | payer MEDICARE, BC ==
--- NOTE | 2019-02-26 10:08 | CARECAPL ---
Assessment Account #s: Re-Assessment II (3) General Diagnoses: AVR Date of event: Oct 16, 2018 Physician: Kalpesh Mcmullen Allergies: Coded Allergies: No Known Allergies (Unverified , 08/16/18) Date Entered Program: Dec 14, 2018 Risk strat for cardiac event: High Exercise Date: Feb 26, 2019 Assessment: Re-Assessment II (3) Stages of change: Preperation Exercise Prescription Plan educate on cardiovascular disease and increase endurance, strength and flexibility through monitored exercise program. Modalities initiated: Treadmill (speed 2.9 incline 3.0 mets 4.42 RPE 3), Nustep (Resistance of 8 for 15 minutes Mets 4.4 RPE 3), Arm Aerometer (Resistance of 4.5 for 10 minutes mets 3.1 RPE 3.5), Dumbells (5lbs 2 sets for 15 reps RPE 3), Recumbent Bike (Resistance 3 for 10 minutes Mets 3.1 RPE 3.5) Frequency: 2 Duration (Minutes) 30 - 60 minutes total exercise a day. 15 - 20 work intervals in minutes. PRN rest intervals in minutes. Functional Capacity Goal Sustained Metabolic Equivalent of a task (MET) goal of 5.0-6.0 for 15-20 minute s. Intensity: 3-Moderate Progression (METS) Increase by: 0.5 METS every: 3-5 sessions Angina with ex: No Target Heart Rate 100-131 age prediction of 65% to 85%. Resistance Training: Yes Weight (pounds): 5 Reps: 12-15 Hypertension: Yes Hypertension controlled with: Medication Resting 142/86 Peak Exercise BP 150/80 Meds losartan Medications Scheduled Acyclovir (Acyclovir), 400 MG PO DAILY, (Reported) Aspirin (Aspirin EC), 81 MG PO DAILY, (Reported) Atorvastatin Calcium (Atorvastatin Calcium), 80 MG PO DAILY, (Reported) Clopidogrel Bisulfate (Plavix), 75 MG PO DAILY, (Reported) Insulin Glargine,Hum.rec.anlog (Basaglar Kwikpen U-100), 50 UNIT SC DAILY, (Reported) Losartan Potassium (Losartan Potassium), 25 MG PO DAILY, (Reported) Metformin HCl (Metformin ER Osmotic), 1,000 MG PO QAM, (Reported) Metformin HCl (Metformin ER Osmotic), 1,000 MG PO QHS, (Reported) Nitroglycerin (Nitroglycerin), 0.4 MG SL ASDIRECTED, (Reported) Pantoprazole Sodium (Pantoprazole Sodium), 40 MG PO DAILY, (Reported) Sitagliptin Phosphate (Januvia), 100 MG PO DAILY, (Reported) Med Change: No (will continue to educate throughout program. Educate was documented on previous ITP.) Target Goals Individual exercise Rx (1) BP 140/90 or 130/80 if DM or CKD (1) Aerobic active 30+min 5 days per week (1) Nutrition Date: Feb 26, 2019 Assessment: Re-Assessment II (3) Stages of change: Contemplate Med Change: No Diabetes Diabetes: Yes Fasting Blood Sugar: 150 Medication Change: No Random Blood Sugar: 150 Blood sugar in range: Yes Current Weight (pounds): 209 Intervention Heat Seal Operator Consult: No Nurse/patient discussion: Yes Diet Class: Yes Education Goals Met: No (will continue to educate throughout program. Education documented on previous ITP.) Target goal LDL-C<100 if triglycerides are >200 Non-HDL-C should be <130 (1) LDL-C<70 for high risk patients (4) HbA1c<7% (1) BMI<25 Waist cir<40in M/<35in F (1) Education Date: Feb 26, 2019 Assessment: Re-Assessment II (3) Stages of change: Contemplate Education Goals Met: No (will continue to educate throughout program. education was documented on previous ITP.) Target Goals Complete cessation of tobacco use (1). Psychosocial Date: Feb 26, 2019 Assessment: Re-Assessment II (3) Stages of change: Contemplate Med Change: No Education Goals Met: No (will continue to educate throughout program. Education was documented on previous ITP.) Target Goal Assess presence or absence of depression using a valid screening tool (1). Maximize coping skills (2). Positive support system (2). Patient/Program Goal Preventative Medication: Yes Aspirin, Yes Clopidogrel, Yes Statin/OTR lipid Lowering Fall Risk Assess: Yes (negative for fall risk) Provider Assessment Session Number: 20 Provider Assessment: Proceed with rehab (progressing well with exercise.) Soo De León RN Feb 26, 2019 10:08
--- NOTE | 2019-03-12 13:22 | CARECAPL ---
Assessment Account #s: Discharge General Diagnoses: AVR Date of event: Oct 16, 2018 Physician: Kalpesh Mcmullen Allergies: Coded Allergies: No Known Allergies (Unverified , 08/16/18) Date Entered Program: Dec 14, 2018 Risk strat for cardiac event: High Exercise Date: Mar 12, 2019 Assessment: Followup/Discharge Stages of change: Preperation, action Exercise Prescription Plan educate on cardiovascular disease and increase endurance, strength and flexibility through a monitored exercise program. Modalities initiated: Treadmill (speed 3.0 incline 3.0 for 15 minutes Mets 4.54 RPE 3), Nustep (resistance of 9 for 8 minutes mets 3.7 RPE 4), Arm Aerometer (Resistance of 4.5 for 10 minutes Mets 3.3 RPE 3), Dumbells (5lb 2 sets of 15 reps RPE 3), Recumbent Bike (Resistance of 4 for 5 minutes Mets 3.7 RPE 4) Frequency: 2 Duration (Minutes) 30 - 60 minutes total exercise a day. 15 - 20 work intervals in minutes. PRN rest intervals in minutes. Functional Capacity Goal Sustained Metabolic Equivalent of a task (MET) goal of 5.0-6.0 for 15-20 minutes. Intensity: 3-Moderate Progression (METS) Increase by: 0.5 METS every: 3-5 sessions Angina with ex: No Target Heart Rate 100-131 age prediction of 65% to 85% Resistance Training: Yes Weight (pounds): 8 Reps: 12-15 Hypertension: Yes Hypertension controlled with: Medication Resting 148/80 Peak Exercise BP 160/80 Meds Losartan Medications Scheduled Acyclovir (Acyclovir), 400 MG PO DAILY, (Reported) Aspirin (Aspirin EC), 81 MG PO DAILY, (Reported) Atorvastatin Calcium (Atorvastatin Calcium), 80 MG PO DAILY, (Reported) Clopidogrel Bisulfate (Plavix), 75 MG PO DAILY, (Reported) Insulin Glargine,Hum.rec.anlog (Basaglar Kwikpen U-100), 50 UNIT SC DAILY, (Reported) Losartan Potassium (Losartan Potassium), 25 MG PO DAILY, (Reported) Metformin HCl (Metformin ER Osmotic), 1,000 MG PO QAM, (Reported) Metformin HCl (Metformin ER Osmotic), 1,000 MG PO QHS, (Reported) Nitroglycerin (Nitroglycerin), 0.4 MG SL ASDIRECTED, (Reported) Pantoprazole Sodium (Pantoprazole Sodium), 40 MG PO DAILY, (Reported) Sitagliptin Phosphate (Januvia), 100 MG PO DAILY, (Reported) Education Goals Met: Yes (see education on prior ITP's.) Target Goals Individual exercise Rx (1) BP 140/90 or 130/80 if DM or CKD (1) Aerobic active 30+min 5 days per week (1) Nutrition Date: Mar 12, 2019 Assessment: Followup/Discharge Stages of change: Preperation, action Med Change: No Diabetes Diabetes: Yes Medication Change: No Random Blood Sugar: 150 Blood sugar in range: Yes Weight Management Weight (lbs): 212 Height (inches): 68 Waist Circumference (Inches): 45 BMI: 32.23 Diet Access Tool: Rate your plate Score: 48 Intervention It Operations Analyst Consult: No Nurse/patient discussion: Yes Diet Class: Yes Referral to Diabetes education: No Referral to lipid clinic: No Referral to weight mangement p: No Education Goals Met: Yes (see education on prior ITP's) Target goal LDL-C<100 if triglycerides are >200 Non-HDL-C should be <130 (1) LDL-C<70 for high risk patients (4) HbA1c<7% (1) BMI<25 Waist cir<40in M/<35in F (1) Education Date: Mar 12, 2019 Assessment: Followup/Discharge Stages of change: Preperation, action Family Support: Yes Tobacco use: Yes (smokes pipe occasionally) Education Goals Met: Yes (see education on prior ITP's.) Target Goals Complete cessation of tobacco use (1). Psychosocial Date: Mar 12, 2019 Assessment: Followup/Discharge Psych Test (Initial/Discharge) Tool Used: Other Score: 2 Stages of change: Preperation, action Intervention Physician Consult: No Physician Referral: No Med Change: No Stress Management Class: Yes Uses Stress Management Skills: Yes Education Goals Met: Yes (see education on prior ITP's.) Target Goal Assess presence or absence of depression using a valid screening tool (1). Maximize coping skills (2). Positive support system (2). Patient/Program Goal Preventative Medication: Yes Aspirin, Yes Clopidogrel, Yes Statin/OTR lipid Lowering, Yes Other (angiotension receptor francisco j.) Fall Risk Assess: Yes (no fall risk) Provider Assessment Session Number: [id number] Provider Assessment: Please add/change: (Discharged from Cardiac Rehab. ) Soo De León RN Mar 12, 2019 13:22
== END 2019-03-15 ==
LOC: M CR 11:17
PROVIDERS: ATTEND Internal Medicine Cardiovascular Disease
DX: Z95.3 Presence of xenogenic heart valve (principal)

== ENCOUNTER → 2019-03-15 | Outpatient (RCR) | payer MEDICARE, BC | LOC: M PT 02-15 09:30 | PROVIDERS: ATTEND Family Medicine | DX: R53.83 Other fatigue (principal); H81.4 Vertigo of central origin; Z95.3 Presence of xenogenic heart valve ==

== ENCOUNTER 2019-03-19 09:29 | Outpatient (RCR) | payer MEDICARE, BC | END 2019-04-14 | LOC: M PT 09:29 | PROVIDERS: ATTEND Family Medicine | DX: R53.83 Other fatigue (principal); Z47.89 Encounter for other orthopedic aftercare ==

== ENCOUNTER → 2019-04-03 | Outpatient (REF) | payer MEDICARE, BC ==
[2019-04-03 12:46] LABS: BLOOD UREA NITROGEN 15 MG/DL (7-18); CALCIUM LEVEL 9.4 MG/DL (8.8-10.2); CARBON DIOXIDE LEVEL 30 MEQ/L (21-32); CHLORIDE LEVEL 107 MEQ/L (98-107); CREATININE FOR GFR 0.84 MG/DL (0.70-1.30); GLOMERULAR FILTRATION RATE > 60.0 (>49); GLUCOSE, FASTING 143 MG/DL (70-100); POTASSIUM SERUM 4.5 MEQ/L (3.5-5.1); SODIUM LEVEL 142 MEQ/L (136-145)
[2019-04-03 13:46] LABS: HEMOGLOBIN A1c 9.1 %
== END ==
LOC: M SFHCADAM 07:46
PROVIDERS: ATTEND Family Medicine
DX: E11.65 Type 2 diabetes mellitus with hyperglycemia (principal)

== ENCOUNTER → 2019-06-12 | Outpatient (REF) | payer MEDICARE, BC ==
[2019-06-12 17:50] LABS: ALBUMIN 3.6 GM/DL (3.2-5.2); ALT/SGPT 18 U/L (12-78); AMYLASE 76 U/L (25-115); BILIRUBIN,TOTAL 0.7 MG/DL (0.2-1.0); BLOOD UREA NITROGEN 12 MG/DL (7-18); CALCIUM LEVEL 9.2 MG/DL (8.8-10.2); CARBON DIOXIDE LEVEL 29 MEQ/L (21-32); CHLORIDE LEVEL 101 MEQ/L (98-107); CREATININE FOR GFR 0.92 MG/DL (0.70-1.30); GLOMERULAR FILTRATION RATE > 60.0 (>49); GLUCOSE, FASTING 273 MG/DL (70-100); LIPASE 936 U/L (73-393); POTASSIUM SERUM 4.5 MEQ/L (3.5-5.1); SODIUM LEVEL 136 MEQ/L (136-145); TOTAL PROTEIN 6.9 GM/DL (6.4-8.2)
[2019-06-12 18:13] LABS: HEMATOCRIT 43.9 % (42.0-52.0); HEMOGLOBIN 14.7 g/dl (13.5-17.5); MEAN CORPUSCULAR HEMOGLOBIN 31.3 pg (27.0-33.0); MEAN CORPUSCULAR HGB CONC 33.5 g/dl (32.0-36.5); MEAN CORPUSCULAR VOLUME 93.4 fl (80.0-96.0); PLATELET COUNT, AUTOMATED 178 10^3/uL (150-450); WHITE BLOOD COUNT 7.3 10^3/uL (4.0-10.0)
== END ==
LOC: M SFHCADAM 11:56
PROVIDERS: ATTEND Family Medicine
DX: R10.13 Epigastric pain (principal); R10.11 Right upper quadrant pain

== ENCOUNTER → 2019-06-14 | Outpatient (CLI) | payer MEDICARE, BC ==
--- NOTE | 2019-06-14 07:55 | REP ---
CT of the abdomen pelvis without IV or bowel contrast for epigastric pain: There are no comparisons. Within the visualized lower lung malcolm are a collection of small calcifications inferiorly in the right middle lobe, unchanged from a prior chest CT dated 07/10/2014, likely granulomas. The unenhanced hepatic parenchyma and gallbladder are unremarkable. The pancreas is normal size. There is a calcification in the body of the pancreas, unchanged from the comparison chest CT of 07/10/2014, possibly residual from prior pancreatitis. The pancreas is otherwise unremarkable. There are calcifications in the spleen, unchanged from 07/10/[address], likely granulomas. The adrenals are unremarkable. The kidneys are unremarkable except for bilateral renal cortical cysts. The largest cyst is in the left renal upper pole measuring 4.1 cm. Abdominal aorta is unremarkable except for calcified atheroma. There is no periaortic adenopathy or mass. There is no bowel distension or obstruction. There are scattered diverticula in the transverse colon, descending colon and sigmoid colon. There is no CT evidence of diverticulitis. The mesentery is otherwise unremarkable. Pelvis: The terminal ileum and appendix are unremarkable. There is no ascites or adenopathy. The bladder is unremarkable. The pelvic bowel loops are unremarkable. Impression: Diverticulosis without diverticulitis. Pancreatic calcification as described. Splenic calcifications, likely granulomas. Bilateral renal cortical cysts. Stable granulomas inferiorly in the middle lobe of the right lung. Electronically Signed by Clifford Alexis MD 06/14/2019 07:46 A
--- NOTE | 2019-06-14 08:39 | REP ---
Abdominal right upper quadrant ultrasound: Comparison is the abdomen/pelvis CT performed earlier this same date. The study is performed for epigastric pain. There is no cholelithiasis, gallbladder wall thickening or pericholecystic fluid. There is no intrahepatic or extrahepatic biliary duct dilatation. The common biliary duct measures 6.4 mm in diameter. The hepatic parenchyma is homogeneous and otherwise unremarkable. The visualized areas of the pancreas are unremarkable. Portions of the pancreas are obscured by bowel gas. The right kidney is normal size measuring 12.8 x 5.9 x 5.5 cm. The there are two Bosniak type 1 right renal cysts, one in the upper pole measuring up to 13 mm and one in the mid pole measuring up to 30 mm. There are no solid right renal masses. There are no right renal calculi. There is no right renal hydronephrosis. The abdominal aorta is unremarkable. There is no right upper quadrant free fluid. Impression: There are two Bosniak type 1 right renal cysts. Otherwise, negative abdominal right upper quadrant ultrasound. Electronically Signed by Clifford Alexis MD 06/14/2019 08:30 A
== END ==
LOC: M RAD 07:04
PROVIDERS: ATTEND Family Medicine
DX: K57.30 Diverticulosis of large intestine without perforation or abscess without bleeding (principal); N28.1 Cyst of kidney, acquired; R91.8 Other nonspecific abnormal finding of lung field; R10.13 Epigastric pain; R10.11 Right upper quadrant pain

== ENCOUNTER → 2019-06-21 | Outpatient (REF) | payer MEDICARE, BC ==
[~2019-06-21] MED LIST changes: +ACET-897 PO; +ACYC400T PO; +METF-791 PO
[2019-06-21 16:45] LABS: HEMATOCRIT 45.4 % (42.0-52.0); HEMOGLOBIN 15.2 g/dl (13.5-17.5); MEAN CORPUSCULAR HEMOGLOBIN 30.4 pg (27.0-33.0); MEAN CORPUSCULAR HGB CONC 33.5 g/dl (32.0-36.5); MEAN CORPUSCULAR VOLUME 90.8 fl (80.0-96.0); PLATELET COUNT, AUTOMATED 199 10^3/uL (150-450); WHITE BLOOD COUNT 9.7 10^3/uL (4.0-10.0)
[2019-06-21 17:19] LABS: HEMOGLOBIN A1c 9.4 %
[2019-06-21 17:25] LABS: ALBUMIN 3.8 GM/DL (3.2-5.2); ALT/SGPT 23 U/L (12-78); AMYLASE 530 U/L (25-115); BILIRUBIN,TOTAL 0.5 MG/DL (0.2-1.0); BLOOD UREA NITROGEN 13 MG/DL (7-18); CALCIUM LEVEL 9.1 MG/DL (8.8-10.2); CARBON DIOXIDE LEVEL 28 MEQ/L (21-32); CHLORIDE LEVEL 101 MEQ/L (98-107); CREATININE FOR GFR 0.94 MG/DL (0.70-1.30); GLOMERULAR FILTRATION RATE > 60.0 (>49); GLUCOSE, FASTING 444 MG/DL (70-100); LIPASE 9399 U/L (73-393); POTASSIUM SERUM 4.8 MEQ/L (3.5-5.1); SODIUM LEVEL 136 MEQ/L (136-145); TOTAL PROTEIN 7.4 GM/DL (6.4-8.2)
== END ==
LOC: M SFHCADAM 14:48
PROVIDERS: ATTEND Family Medicine
DX: E11.65 Type 2 diabetes mellitus with hyperglycemia (principal); K85.30 Drug induced acute pancreatitis without necrosis or infection; Z12.5 Encounter for screening for malignant neoplasm of prostate
CPT/HCPCS: 80053; 82150; 83036; 83690; 85027; G0103

== ENCOUNTER 2019-06-22 15:04 | Inpatient (IN) | payer MEDICARE, BC ==
[~2019-06-22] VITALS: Ht 172.7 cm; Wt 96.4 kg
[~2019-06-22 15:04] MED LIST changes: -ACET-897 PO; -ACYC400T PO; -METF-791 PO
[2019-06-22] MEDS: NS 1,000 ML IV SCH ×2 (16:33→23:46)
[2019-06-22 16:35] LABS: BASO % 0.4 % (0.0-1.0); EOS # 0.4 10^3/uL (0.0-0.5); EOS % 3.8 % (0.0-3.0); HEMATOCRIT 44.1 % (42.0-52.0); HEMOGLOBIN 14.6 g/dl (13.5-17.5); LYMPH # 2.1 10^3/uL (1.5-5.0); LYMPH % 22.2 % (24.0-44.0); MEAN CORPUSCULAR HEMOGLOBIN 29.8 pg (27.0-33.0); MEAN CORPUSCULAR HGB CONC 33.1 g/dl (32.0-36.5); MONO # 0.9 10^3/uL (0.0-0.8); MONO % 9.2 % (0.0-5.0); NEUTROPHILS # 6.2 10^3/uL (1.5-8.5); PLATELET COUNT, AUTOMATED 193 10^3/uL (150-450); WHITE BLOOD COUNT 9.7 10^3/uL (4.0-10.0)
[2019-06-22] MEDS ORDERED: ACET-897 PO (16:44)
[2019-06-22] MEDS ORDERED: ACYC400T PO (16:44)
[2019-06-22] MEDS ORDERED: METF-791 PO (16:44)
[2019-06-22 17:06] LABS: ALBUMIN 3.6 GM/DL (3.2-5.2); ALT/SGPT 19 U/L (12-78); BILIRUBIN,DIRECT 0.2 MG/DL (0.0-0.2); BILIRUBIN,TOTAL 0.6 MG/DL (0.2-1.0); BLOOD UREA NITROGEN 12 MG/DL (7-18); CALCIUM LEVEL 8.7 MG/DL (8.8-10.2); CARBON DIOXIDE LEVEL 28 MEQ/L (21-32); CHLORIDE LEVEL 104 MEQ/L (98-107); CREATININE FOR GFR 0.77 MG/DL (0.70-1.30); GLOMERULAR FILTRATION RATE > 60.0 (>49); GLUCOSE, FASTING 264 MG/DL (70-100); LIPASE 4139 U/L (73-393); POTASSIUM SERUM 4.3 MEQ/L (3.5-5.1); SODIUM LEVEL 137 MEQ/L (136-145); TOTAL PROTEIN 7.3 GM/DL (6.4-8.2)
[2019-06-22] MEDS ORDERED: DEXTROSE 50% 50 ML SYRINGE IV PRN (17:15)
[2019-06-22] MEDS ORDERED: GLUCAGON FOR INJ 1 MG VIAL (J1610) SC PRN (17:15)
[2019-06-22] MEDS ORDERED: GLUCOSE 4 GM CHEW TABLET PO PRN (17:15)
--- NOTE | 2019-06-22 17:23 | HPEPDOC ---
[facility] Medical History & Physical Date of Admission Jun 22, 2019 Date of Service: Jun 22, 2019 Primary Care Physician: Filemon Sorenson MD History and Physical CHIEF COMPLAINT: Abdominal pain HISTORY OF PRESENT ILLNESS: 69-year-old male with past medical history of diabetes mellitus, hypertension, coronary artery disease, aortic valve replacement due to aortic stenosis presents from home with abdominal pain. Patient has had epigastric abdominal pain for the past 2 weeks, worsening, has been following up with his PCP will believe his pain is related to Victoza induced pancreatitis. Lipase levels have been progressively worsening over the past 2 weeks, outpatient imaging including CT, MRI and ultrasound have been performed. Patient was advised to come in by his primary care physician for admission due to pancreatitis. Patient continues to have epigastric and right upper quadrant abdominal pain, denies any associated nausea, vomiting, diarrhea, fever, dyspnea or chest pain. 10 point review of system is negative except for above PAST MEDICAL HISTORY: 1. Coronary artery disease. 2. Hypertension. 3. Diabetes mellitus. 4. Aortic valve stenosis PAST SURGICAL HISTORY: 1. Aortic valve replacement. 2. Hernia repair. SOCIAL HISTORY: Previous smoker, smoked 1 pack per day for over 20 years. Denies alcohol use. Denies drug use FAMILY HISTORY: Positive for heart disease ALLERGIES: Please see below. HOME MEDICATIONS: Please see below. PHYSICAL EXAMINATION: VITAL SIGNS: Please see below. GENERAL: No distress HEENT: Normocephalic, atraumatic, moist mucous membranes NECK: Supple CARDIOVASCULAR EXAMINATION: S1, S2, no murmurs RESPIRATORY EXAMINATION: Clear to auscultation, no wheezing ABDOMINAL EXAMINATION: Soft, mild epigastric tenderness, nondistended, positive bowel sounds EXTREMITIES: Range of motion intact SKIN: No rash NEUROLOGICAL EXAMINATION: Alert and oriented 3, no focal deficits PSYCHIATRIC EXAMINATION: Calm and cooperative LABORATORY DATA: See below. IMAGING: CT of abdomen and pelvis showing calcified pancreas without any signs of pancreatitis MICROBIOLOGY: Please see below. ASSESSMENT: 69-year-old male with past medical history of hypertension, diabetes mellitus, coronary artery disease and aortic stenosis status post aortic valve replacement is being admitted for acute pancreatitis. PLAN: 1. Acute pancreatitis. Lipase trending down, continue IV hydration with normal saline at 150 ml per hour, full liquid diet for now, will advance as tolerated. 2. Diabetes mellitus. Hold home meds, Levemir 40 units at bedtime along with sliding scale insulin with meals and at bedtime, will adjust insulin regimen based on patient's needs. 3. Coronary artery disease. Continue optimal medical management with aspirin and statin 4. Hypertension. Continue losartan 5. GERD. Continue Protonix DVT prophylaxis: Lovenox. GI prophylaxis: Protonix Vital Signs Vital Signs Date Time Temp Pulse Resp B/P (MAP) Pulse Ox O2 Delivery O2 Flow Rate FiO2 06/22/19 16:33 06/22/19 15:04 97.1 72 18 98 Room Air Laboratory Data Labs 24H Laboratory Tests 2 06/22/19 15:14: Immature Granulocyte % (Auto) 0.4, Neutrophils (%) (Auto) 64.0, Lymphocytes (%) (Auto) 22.2L, Monocytes (%) (Auto) 9.2H, Eosinophils (%) (Auto) 3.8H, Basophils (%) (Auto) 0.4, Neutrophils # (Auto) 6.2, Lymphocytes # (Auto) 2.1, Monocytes # (Auto) 0.9H, Eosinophils # (Auto) 0.4, Basophils # (Auto) 0.0, Nucleated Red Blood Cells % (auto) 0.0, Anion Gap 5L, Glomerular Filtration Rate > 60.0, Calcium Level 8.7L, Total Bilirubin 0.6, Direct Bilirubin 0.2, Aspartate Amino Transf (AST/SGOT) 12, Alanine Aminotransferase (ALT/SGPT) 19, Alkaline Phosphatase 93, Total Protein 7.3, Albumin 3.6, Albumin/Globulin Ratio 0.97L, Lipase 4139H CBC/BMP Laboratory Tests 06/22/19 15:14 Home Medications Scheduled Acyclovir (Acyclovir) 400 Mg Tablet, 400 MG PO DAILY Aspirin (Aspirin EC) 81 Mg Tab, 81 MG PO QHS Atorvastatin Calcium (Atorvastatin Calcium) 80 Mg Tab, 80 MG PO DAILY Insulin Glargine,Hum.rec.anlog (Basaglar Kwikpen U-100) 100 Unit/Ml Inj, 60 UNIT SC QHS Losartan Potassium (Losartan Potassium) 25 Mg Tab, 25 MG PO QHS Metformin HCl (Metformin HCl ER) 500 Mg Tab.er.24h, 1,000 MG PO BID Pantoprazole Sodium (Pantoprazole Sodium) 40 Mg Tab, 40 MG PO QHS Sitagliptin Phosphate (Januvia) 100 Mg Tab, 100 MG PO DAILY Scheduled PRN Acetaminophen (Tylenol Extra Strength) 500 Mg Tablet, 1,000 MG PO TID PRN for PAIN / FEVER Nitroglycerin (Nitroglycerin) 0.4 Mg Tab.subl, 0.4 MG SL NITRO PRN for CHEST PAIN Allergies Coded Allergies: liraglutide (Verified Adverse Reaction, Intermediate, pancreatitis, 06/22/19) ramipril (Verified Adverse Reaction, Intermediate, coughing , 06/22/19) dapagliflozin (Verified Adverse Reaction, Mild, yeast infection, 06/22/19) A-FIB/CHADSVASC A-FIB History Current/History of A-Fib/PAF?: ALEJANDRA Patten MD Jun 22, 2019 17:23
[2019-06-22] MEDS: ACETAMINOPHEN 500 MG TAB PO PRN ×2 (17:27→23:44)
[2019-06-22] MEDS: HumaLOG INSULIN (NovoLOG) PER UNIT SC SCH ×2 (17:30→20:05)
[2019-06-22 19:06] VITALS: BP 132/80
[2019-06-22 19:46] VITALS: BP 169/90
[2019-06-22 20:00] VITALS: BP 125/90
[2019-06-22] MEDS: PANTOPRAZOLE 40MG TAB (PROTONIX) PO SCH (20:02)
[2019-06-22] MEDS: ENOXAPARIN 40 MG/0.4 ML SYRINGE (J1650) SC SCH (20:02)
[2019-06-22] MEDS: PERCOCET 5MG/325MG TAB PO PRN (20:02)
[2019-06-22] MEDS: ASPIRIN 81 MG ENTERIC TAB PO SCH (20:02)
[2019-06-22] MEDS: LOSARTAN 25 MG TAB PO SCH (20:04)
[2019-06-22] MEDS: LEVEMIR (INSULIN DETEMIR) 1 UNITS/0.01ML SC SCH (20:05)
[2019-06-23] MEDS: PERCOCET 5MG/325MG TAB PO PRN ×4 (02:00→20:45)
[2019-06-23] MEDS: NS 1,000 ML IV SCH ×4 (05:39→22:48)
[2019-06-23 05:45] VITALS: BP 140/80
[2019-06-23 07:18] LABS: HEMATOCRIT 40.8 % (42.0-52.0); HEMOGLOBIN 14.1 g/dl (13.5-17.5); MEAN CORPUSCULAR HEMOGLOBIN 30.8 pg (27.0-33.0); MEAN CORPUSCULAR HGB CONC 34.6 g/dl (32.0-36.5); MEAN CORPUSCULAR VOLUME 89.1 fl (80.0-96.0); PLATELET COUNT, AUTOMATED 177 10^3/uL (150-450); RED BLOOD COUNT 4.58 10^6/uL (4.30-6.10); WHITE BLOOD COUNT 7.4 10^3/uL (4.0-10.0)
[2019-06-23 07:49] LABS: ALT/SGPT 17 U/L (12-78); BILIRUBIN,TOTAL 0.5 MG/DL (0.2-1.0); BLOOD UREA NITROGEN 8 MG/DL (7-18); CALCIUM LEVEL 8.2 MG/DL (8.8-10.2); CARBON DIOXIDE LEVEL 25 MEQ/L (21-32); CHLORIDE LEVEL 108 MEQ/L (98-107); CREATININE FOR GFR 0.62 MG/DL (0.70-1.30); GLOMERULAR FILTRATION RATE > 60.0 (>49); GLUCOSE, FASTING 127 MG/DL (70-100); LIPASE 2555 U/L (73-393); MAGNESIUM LEVEL 1.9 MG/DL (1.8-2.4); POTASSIUM SERUM 3.7 MEQ/L (3.5-5.1); SODIUM LEVEL 139 MEQ/L (136-145)
[2019-06-23] MEDS: ACYCLOVIR 200 MG CAPSULE PO SCH (08:15)
[2019-06-23] MEDS: ATORVASTATIN 20 MG TAB PO SCH (08:15)
[2019-06-23] MEDS: HumaLOG INSULIN (NovoLOG) PER UNIT SC SCH ×4 (08:16→20:04)
[2019-06-23 15:17] VITALS: BP 130/80
[2019-06-23] MEDS: ASPIRIN 81 MG ENTERIC TAB PO SCH (20:03)
[2019-06-23 20:04] VITALS: BP 146/78
[2019-06-23] MEDS: LEVEMIR (INSULIN DETEMIR) 1 UNITS/0.01ML SC SCH (20:04)
[2019-06-23] MEDS: ENOXAPARIN 40 MG/0.4 ML SYRINGE (J1650) SC SCH (20:04)
[2019-06-23] MEDS: LOSARTAN 25 MG TAB PO SCH (20:04)
[2019-06-23] MEDS: PANTOPRAZOLE 40MG TAB (PROTONIX) PO SCH (20:04)
--- NOTE | 2019-06-23 20:41 | IPNPDOC ---
Subjective Date Seen The patient was seen on 06/23/19. Subjective Chief Complaint/HPI Varun reports that he has done well with full liquids today. He is still requiring Percocet for abdominal pain, but is trying to stretch it more than the six hours he is allowed. He is curious about my take on the etiology of his pancreatitis. He also wants to results of his recent abdominal MRI that was done [facility] to evaluate for pancreatic pseudocysts. General: Reports: Normal Appetite Constitutional: Denies: Chills, Fever Pulmonary: Denies: Dyspnea, Cough Cardiovascular: Denies: Chest Pain, Palpitations Gastrointestinal: Reports: Abdominal Pain; Denies: Vomiting Psych: Reports: Mood Normal Objective Physical Examination General Exam: Positive: Alert, Cooperative, No Acute Distress (talking to his at his bedside when I entered the room) Eye Exam: Positive: Conjunctiva & lids normal; Negative: Sclera icteric ENT Exam: Positive: Mucous membr. moist/pink Neck Exam: Negative: Lymphadenopathy Chest Exam: Positive: Clear to auscultation, Normal air movement Heart Exam: Positive: Rate Normal, Normal S1, Normal S2; Negative: Murmurs Abdomen Exam: Positive: Normal bowel sounds, Soft, Other (no rebound tenderness); Negative: Tenderness (on light palpation) Extremity Exam: Negative: Edema Psych Exam: Positive: Mood NL, Oriented x 3 Assessment /Plan Problems (1) Drug-induced pancreatitis Status: Acute Response to Treatment: Improving Discussed With: Patient, Family with Pt Consent Problem Specific Plan: Monitor Clinically, Repeat Labs Problem Text: He seems to be slowly improving. I believe that this is related to Victoza, specifically the increased dose to maximum in April. We'll contin ue to slowly advance his diet and watch his lipase trend down. (2) Diabetes mellitus Status: Chronic Problem Text: He has required 12 units of additional sliding scale the last 24 hours. I'll add half of this (six units) to his current basal insulin dose of 40 for a total of 46 units of basal insulin starting tomorrow. Making these adjustments in part because he is now off the Victoza because we strongly suspect it caused his pancreatitis. (3) CAD (coronary artery disease) Status: Chronic Response to Treatment: Stable Problem Specific Plan: Monitor Clinically Problem Text: Continue current regimen, monitor. (4) HTN (hypertension) Status: Chronic Response to Treatment: Controlled Problem Specific Plan: Monitor Clinically Problem Text: Continue current regimen, monitor. Plan/VTE VTE Prophylaxis Ordered?: Yes (Scott Malin) Plan IVF: Decrease (from 150 mL per hour to 75 mL per hour, he seems to be hydrating well orally) Diet: Advance Anticipated Discharge: Home (in 1-2 days) VS, I&O, 24H, Fishbone Vital Signs/I&O Vital Signs Date Time Temp Pulse Resp B/P (MAP) Pulse Ox O2 Delivery O2 Flow Rate FiO2 06/23/19 20:04 146/78 06/23/19 15:17 98.6 80 18 96 06/23/19 09:00 Room Air I&O- Last 24 Hours up to 6 AM 06/23/19 05:59 Intake Total 225 ml Output Total 1675 ml Balance -1450 ml Laboratory Data 24H LABS Laboratory Tests 2 06/23/19 06:55: Nucleated Red Blood Cells % (auto) 0.0, Anion Gap 6L, Glomerular Filtration Rate > 60.0, Calcium Level 8.2L, Magnesium Level 1.9, Total Bilirubin 0.5, Aspartate Amino Transf (AST/SGOT) 9, Alanine Aminotransferase (ALT/SGPT) 17, Alkaline Phosphatase 84, Total Protein 7.0, Albumin 3.0L, Albumin/Globulin Ratio 0.75L, Lipase 2555H 06/23/19 11:30: Bedside Glucose (Misc Panel) 240H 06/23/19 16:55: Bedside Glucose (Misc Panel) 177H 06/23/19 19:56: Bedside Glucose (Misc Panel) 209H CBC/BMP Laboratory Tests 06/23/19 06:55 Myke Hammer MD Jun 23, 2019 8:41 pm
[2019-06-23 22:00] VITALS: BP 146/78
[2019-06-24] MEDS: PERCOCET 5MG/325MG TAB PO PRN ×2 (02:50→08:55)
[2019-06-24 06:00] VITALS: BP 140/79
[2019-06-24 07:21] LABS: HEMATOCRIT 40.8 % (42.0-52.0); HEMOGLOBIN 13.4 g/dl (13.5-17.5); MEAN CORPUSCULAR HEMOGLOBIN 29.9 pg (27.0-33.0); MEAN CORPUSCULAR HGB CONC 32.8 g/dl (32.0-36.5); MEAN CORPUSCULAR VOLUME 91.1 fl (80.0-96.0); PLATELET COUNT, AUTOMATED 170 10^3/uL (150-450); RED BLOOD COUNT 4.48 10^6/uL (4.30-6.10); WHITE BLOOD COUNT 6.6 10^3/uL (4.0-10.0)
[2019-06-24] MEDS: HumaLOG INSULIN (NovoLOG) PER UNIT SC SCH ×2 (07:21→11:56)
[2019-06-24 07:44] LABS: ALBUMIN 2.8 GM/DL (3.2-5.2); ALT/SGPT 15 U/L (12-78); BILIRUBIN,TOTAL 0.5 MG/DL (0.2-1.0); BLOOD UREA NITROGEN 7 MG/DL (7-18); CALCIUM LEVEL 8.9 MG/DL (8.8-10.2); CARBON DIOXIDE LEVEL 29 MEQ/L (21-32); CHLORIDE LEVEL 106 MEQ/L (98-107); CREATININE FOR GFR 0.66 MG/DL (0.70-1.30); GLOMERULAR FILTRATION RATE > 60.0 (>49); GLUCOSE, FASTING 79 MG/DL (70-100); LIPASE 940 U/L (73-393); POTASSIUM SERUM 3.7 MEQ/L (3.5-5.1); SODIUM LEVEL 139 MEQ/L (136-145); TOTAL PROTEIN 6.5 GM/DL (6.4-8.2)
[2019-06-24] MEDS: ATORVASTATIN 20 MG TAB PO SCH (08:20)
[2019-06-24] MEDS: ACYCLOVIR 200 MG CAPSULE PO SCH (08:20)
[2019-06-24] MEDS: NS 1,000 ML IV SCH (11:57)
--- NOTE | 2019-06-24 12:43 | DS.PDOC ---
Discharge Summary General Date of Admission Jun 22, 2019 at 17:07 Date of Discharge 06/24/2019 Primary Care Physician: Filemon Sorenson MD Attending Physician: Myke Hammer MD Discharge Summary PROCEDURES PERFORMED DURING STAY: [None]. ADMITTING DIAGNOSES: 1. . DISCHARGE DIAGNOSES: 1. . COMPLICATIONS/CHIEF COMPLAINT: Aortic Valve Replaced,Cad,Diabetes Jesi itus,Htn,Pa. HISTORY OF PRESENT ILLNESS: . HOSPITAL COURSE: . DISCHARGE MEDICATIONS: Please see below. ALLERGIES: Please see below. PHYSICAL EXAMINATION ON DISCHARGE: VITAL SIGNS: Please see below. GENERAL: HEENT: NECK: CARDIOVASCULAR EXAMINATION: RESPIRATORY EXAMINATION: ABDOMINAL EXAMINATION: EXTREMITIES: SKIN: NEUROLOGICAL EXAMINATION: PSYCHIATRIC EXAMINATION: LABORATORY DATA: Please see below. IMAGING: PROGNOSIS: ACTIVITY: [As tolerated]. DIET: DISCHARGE PLAN: DISPOSITION: . DISCHARGE INSTRUCTIONS: 1. . ITEMS TO FOLLOWUP ON ON OUTPATIENT: 1. . DISCHARGE CONDITION: [Stable]. TIME SPENT ON DISCHARGE: Greater than minutes. Vital Signs/I&Os Vital Signs Date Time Temp Pulse Resp B/P (MAP) Pulse Ox O2 Delivery O2 Flow Rate FiO2 06/24/19 08:55 18 06/24/19 06:00 97.6 61 140/79 (99) 97 Room Air I&O- Last 24 Hours up to 6 AM 06/24/19 06:00 Intake Total 3980 ml Output Total 3800 ml Balance 180 ml Laboratory Data Labs 24H Laboratory Tests 2 06/23/19 16:55: Bedside Glucose (Misc Panel) 177H 06/23/19 19:56: Bedside Glucose (Misc Panel) 209H 06/24/19 06:35: Nucleated Red Blood Cells % (auto) 0.0, Anion Gap 4L, Glomerular Filtration Rate > 60.0, Calcium Level 8.9, Total Bilirubin 0.5, Aspartate Amino Transf (AST/SGOT) 13, Alanine Aminotransferase (ALT/SGPT) 15, Alkaline Phosphatase 75, Total Protein 6.5, Albumin 2.8L, Albumin/Globulin Ratio 0.76L, Lipase 940H 06/24/19 06:56: Bedside Glucose (Misc Panel) 75L 06/24/19 11:48: Bedside Glucose (Misc Panel) 291H CBC/BMP Laboratory Tests 06/24/19 06:35 FSBS Laboratory Tests Test 06/23/19 16:55 06/23/19 19:56 06/24/19 06:56 06/24/19 11:48 Range/Units Bedside Glucose (Misc Panel) 177 209 75 291 80-115 MG/DL Discharge Medications Scheduled Acyclovir (Acyclovir) 400 Mg Tablet, 400 MG PO DAILY, (Reported) Aspirin (Aspirin EC) 81 Mg Tab, 81 MG PO QHS, (Reported) Atorvastatin Calcium (Atorvastatin Calcium) 80 Mg Tab, 80 MG PO DAILY, (Rep orted) Insulin Glargine,Hum.rec.anlog (Basaglar Kwikpen U-100) 100 Unit/Ml Inj, 60 UNIT SC QHS, (Reported) Losartan Potassium (Losartan Potassium) 25 Mg Tab, 25 MG PO QHS, (Reported) Metformin HCl (Metformin HCl ER) 500 Mg Tab.er.24h, 1,000 MG PO BID, (Reported) Pantoprazole Sodium (Pantoprazole Sodium) 40 Mg Tab, 40 MG PO QHS, (Reported) Sitagliptin Phosphate (Januvia) 100 Mg Tab, 100 MG PO DAILY, (Reported) Scheduled PRN Acetaminophen (Tylenol Extra Strength) 500 Mg Tablet, 1,000 MG PO TID PRN for PA IN / FEVER, (Reported) Nitroglycerin (Nitroglycerin) 0.4 Mg Tab.subl, 0.4 MG SL NITRO PRN for CHEST PAIN, (Reported) Allergies Coded Allergies: liraglutide (Verified Adverse Reaction, Intermediate, pancreatitis, ) ramipril (Verified Adverse Reaction, Intermediate, coughing , 06/22/19) dapagliflozin (Verified Adverse Reaction, Mild, yeast infection, 06/22/19) Myke Hammer MD Jun 24, 2019 12:43
[2019-06-24] MEDS ORDERED: PERCOCET PO (12:52)
[2019-06-24] MEDS ORDERED: LEVEMIR (INSULIN DETEMIR) 1 UNITS/0.01ML SC SCH (21:00)
== END 2019-06-24 13:35 | disposition home or self-care (01) | DRG 440 ==
LOC: M ED 15:04 → M ED INP 17:07 → ENRESERV 18:32 → M MS5PR 18:53
PROVIDERS: ADMIT Internal Medicine; ATTEND Family Medicine
DX: K85.30 Drug induced acute pancreatitis without necrosis or infection (principal); E11.9 Type 2 diabetes mellitus without complications; T38.3X5A Adverse effect of insulin and oral hypoglycemic [antidiabetic] drugs, initial encounter; I25.10 Atherosclerotic heart disease of native coronary artery without angina pectoris; I10 Essential (primary) hypertension; K21.9 Gastro-esophageal reflux disease without esophagitis; Z79.82 Long term (current) use of aspirin; Z79.4 Long term (current) use of insulin; Z87.891 Personal history of nicotine dependence; Z79.899 Other long term (current) drug therapy; Z95.2 Presence of prosthetic heart valve; Z88.8 Allergy status to other drugs, medicaments and biological substances; Z12.5 Encounter for screening for malignant neoplasm of prostate

== ENCOUNTER → 2019-07-24 | Outpatient (REF) | payer MEDICARE, BC ==
[~2019-07-24] MED LIST changes: +ACET-897 PO; +ACYC400T PO; +METF-791 PO
[2019-07-24 13:44] LABS: HEMATOCRIT 44.1 % (42.0-52.0); HEMOGLOBIN 14.8 g/dl (13.5-17.5); MEAN CORPUSCULAR HEMOGLOBIN 30.8 pg (27.0-33.0); MEAN CORPUSCULAR HGB CONC 33.6 g/dl (32.0-36.5); MEAN CORPUSCULAR VOLUME 91.7 fl (80.0-96.0); PLATELET COUNT, AUTOMATED 187 10^3/uL (150-450); RED BLOOD COUNT 4.81 10^6/uL (4.30-6.10); WHITE BLOOD COUNT 6.7 10^3/uL (4.0-10.0)
[2019-07-24 14:13] LABS: ALBUMIN 3.7 GM/DL (3.2-5.2); ALT/SGPT 28 U/L (12-78); AMYLASE 47 U/L (25-115); BILIRUBIN,TOTAL 0.4 MG/DL (0.2-1.0); BLOOD UREA NITROGEN 19 MG/DL (7-18); CALCIUM LEVEL 9.5 MG/DL (8.8-10.2); CARBON DIOXIDE LEVEL 29 MEQ/L (21-32); CHLORIDE LEVEL 104 MEQ/L (98-107); CREATININE FOR GFR 0.82 MG/DL (0.70-1.30); GLOMERULAR FILTRATION RATE > 60.0 (>49); GLUCOSE, FASTING 259 MG/DL (70-100); LIPASE 260 U/L (73-393); SODIUM LEVEL 137 MEQ/L (136-145); TOTAL PROTEIN 6.8 GM/DL (6.4-8.2)
[2019-07-24 19:59] LABS: HEMOGLOBIN A1c 10.1 %
== END ==
LOC: M SFHCADAM 07:54
PROVIDERS: ATTEND Family Medicine
DX: K85.30 Drug induced acute pancreatitis without necrosis or infection (principal); E11.65 Type 2 diabetes mellitus with hyperglycemia

== ENCOUNTER → 2019-08-29 | Outpatient (REF) | payer MEDICARE, BC ==
[2019-08-29 13:04] LABS: BLOOD UREA NITROGEN 13 MG/DL (7-18); CALCIUM LEVEL 9.5 MG/DL (8.8-10.2); CARBON DIOXIDE LEVEL 30 MEQ/L (21-32); CHLORIDE LEVEL 106 MEQ/L (98-107); GLOMERULAR FILTRATION RATE > 60.0 (>49); GLUCOSE, FASTING 160 MG/DL (70-100); POTASSIUM SERUM 4.6 MEQ/L (3.5-5.1); SODIUM LEVEL 140 MEQ/L (136-145)
[2019-08-29 13:15] LABS: HEMOGLOBIN A1c 9.8 %
== END ==
LOC: M SFHCADAM 07:53
PROVIDERS: ATTEND Family Medicine
DX: E11.65 Type 2 diabetes mellitus with hyperglycemia (principal)

== ENCOUNTER → 2019-10-30 | Outpatient (REF) | payer MEDICARE, BC ==
[~2019-10-30] MED LIST changes: -METF-791 PO; +METF-838 PO; +PANT40TA29 PO; -PANT40TA3 PO
[2019-10-30 13:16] LABS: BLOOD UREA NITROGEN 11 MG/DL (7-18); CALCIUM LEVEL 9.6 MG/DL (8.8-10.2); CARBON DIOXIDE LEVEL 27 MEQ/L (21-32); CHLORIDE LEVEL 105 MEQ/L (98-107); CREATININE FOR GFR 0.82 MG/DL (0.70-1.30); GLOMERULAR FILTRATION RATE > 60.0 (>49); GLUCOSE, FASTING 211 MG/DL (70-100); POTASSIUM SERUM 4.8 MEQ/L (3.5-5.1); SODIUM LEVEL 138 MEQ/L (136-145)
[2019-10-30 14:45] LABS: HEMOGLOBIN A1c 9.5 %
== END ==
LOC: M SFHCADAM 10:14
PROVIDERS: ATTEND Family Medicine
DX: E11.65 Type 2 diabetes mellitus with hyperglycemia (principal)

== ENCOUNTER → 2020-02-27 | Outpatient (REF) | payer MEDICARE, BC ==
[2020-02-27 13:54] LABS: HEMOGLOBIN A1c 9.7 %
[2020-02-27 14:06] LABS: BLOOD UREA NITROGEN 15 MG/DL (7-18); CALCIUM LEVEL 9.1 MG/DL (8.8-10.2); CARBON DIOXIDE LEVEL 28 MEQ/L (21-32); CHLORIDE LEVEL 106 MEQ/L (98-107); CREATININE FOR GFR 0.85 MG/DL (0.70-1.30); GLOMERULAR FILTRATION RATE > 60.0 (>49); GLUCOSE, FASTING 206 MG/DL (70-100); POTASSIUM SERUM 4.3 MEQ/L (3.5-5.1); SODIUM LEVEL 139 MEQ/L (136-145)
== END ==
LOC: M SFHCADAM 07:45
PROVIDERS: ATTEND Family Medicine
DX: E11.65 Type 2 diabetes mellitus with hyperglycemia (principal); Z79.84 Long term (current) use of oral hypoglycemic drugs

== ENCOUNTER → 2020-05-22 | Outpatient (REF) | payer MEDICARE, BC ==
[2020-05-22 13:28] LABS: HEMATOCRIT 44.8 % (42.0-52.0); HEMOGLOBIN 15.2 g/dl (13.5-17.5); MEAN CORPUSCULAR HEMOGLOBIN 31.5 pg (27.0-33.0); MEAN CORPUSCULAR HGB CONC 33.9 g/dl (32.0-36.5); MEAN CORPUSCULAR VOLUME 92.8 fl (80.0-96.0); PLATELET COUNT, AUTOMATED 193 10^3/uL (150-450); RED BLOOD COUNT 4.83 10^6/uL (4.30-6.10); WHITE BLOOD COUNT 7.5 10^3/uL (4.0-10.0)
[2020-05-22 13:55] LABS: HEMOGLOBIN A1c 10.8 %
[2020-05-22 14:05] LABS: ALBUMIN 3.8 GM/DL (3.2-5.2); ALT/SGPT 19 U/L (12-78); BILIRUBIN,TOTAL 0.4 MG/DL (0.2-1.0); BLOOD UREA NITROGEN 13 MG/DL (7-18); CARBON DIOXIDE LEVEL 30 MEQ/L (21-32); CHLORIDE LEVEL 109 MEQ/L (98-107); CHOLESTEROL LEVEL 177 MG/DL (<200); CHOLESTEROL RISK RATIO 3.933 (<5); GLOMERULAR FILTRATION RATE > 60.0 (>49); GLUCOSE, FASTING 220 MG/DL (70-100); HDL CHOLESTEROL 45 MG/DL (>40); LDL CHOLESTEROL 96 MG/DL (<100); NON-HDL-C 132 MG/DL; SODIUM LEVEL 143 MEQ/L (136-145); TOTAL PROTEIN 6.9 GM/DL (6.4-8.2); TRIGLYCERIDES LEVEL 180 MG/DL (<150)
== END ==
LOC: M SFHCADAM 08:05
PROVIDERS: ATTEND Family Medicine
DX: E78.2 Mixed hyperlipidemia (principal); I11.9 Hypertensive heart disease without heart failure; E11.65 Type 2 diabetes mellitus with hyperglycemia; I25.84 Coronary atherosclerosis due to calcified coronary lesion

== ENCOUNTER → 2020-06-12 | Outpatient (REF) | payer MEDICARE, BC ==
[2020-06-12 17:25] LABS: HEMATOCRIT 46.7 % (42.0-52.0); HEMOGLOBIN 15.7 g/dl (13.5-17.5); MEAN CORPUSCULAR HEMOGLOBIN 31.3 pg (27.0-33.0); MEAN CORPUSCULAR HGB CONC 33.6 g/dl (32.0-36.5); PLATELET COUNT, AUTOMATED 184 10^3/uL (150-450); RED BLOOD COUNT 5.02 10^6/uL (4.30-6.10); WHITE BLOOD COUNT 8.4 10^3/uL (4.0-10.0)
[2020-06-12 18:02] LABS: ALBUMIN 4.1 GM/DL (3.2-5.2); ALT/SGPT 25 U/L (12-78); AMYLASE 43 U/L (25-115); BILIRUBIN,TOTAL 0.5 MG/DL (0.2-1.0); BLOOD UREA NITROGEN 16 MG/DL (7-18); CALCIUM LEVEL 9.7 MG/DL (8.8-10.2); CARBON DIOXIDE LEVEL 29 MEQ/L (21-32); CHLORIDE LEVEL 100 MEQ/L (98-107); CREATININE FOR GFR 0.95 MG/DL (0.70-1.30); GLOMERULAR FILTRATION RATE > 60.0 (>49); GLUCOSE, FASTING 391 MG/DL (70-100); LIPASE 119 U/L (73-393); POTASSIUM SERUM 5.1 MEQ/L (3.5-5.1); SODIUM LEVEL 137 MEQ/L (136-145); TOTAL PROTEIN 7.5 GM/DL (6.4-8.2)
== END ==
LOC: M SFHCADAM 11:15
PROVIDERS: ATTEND Family Medicine
DX: R10.84 Generalized abdominal pain (principal)

== ENCOUNTER → 2020-06-13 | Outpatient (CLI) | payer MEDICARE, BC ==
[~2020-06-13] MED LIST changes: +GASTROGRAFIN SOLUTION 30ML (Q9963) As Ordered ONE; +ISOVUE-370 76% 100ML VIAL As Ordered ONE
--- NOTE | 2020-06-13 11:16 | REP ---
INDICATION: RECURRENT PANCREATITIS. COMPARISON: Comparison CT study June 14, 2019.. TECHNIQUE: Helical scanning is acquired and 3 mm axial images re-formatted. Coronal and sagittal MPR images are generated. The CT contrast enhancement dose is 100 mL of intravenous Isovue 370. FINDINGS: Preliminary digital coremaker experimental radiograph shows an unremarkable bowel gas pattern. The lung bases are free of infiltrate. There is no evidence of pleural effusion. Granulomatous calcifications are visible in the right lower lobe and right middle lobe. These are unchanged. There is mild diffuse fatty infiltration of the liver. No focal liver lesion is seen. There are granulomatous calcifications scattered in the spleen. Spleen size is normal. No abnormality is noted in the gallbladder. No pancreatic mass or cyst is seen. There is vascular calcification in the splenic artery and aorta. Normal adrenal glands are seen. Bilateral renal cortical cysts are observed. The right kidney contains a simple cyst measuring 2.9 cm in greatest diameter. In the upper pole of the left kidney peripherally there is a simple cyst measuring 4.7 cm in greatest diameter. A smaller simple cyst is seen at the lower pole of the left kidney posteriorly. A normal appendix is seen in the right mid abdomen just beneath the tip of the liver. Small and large intestinal bowel loops are unremarkable in the upper abdomen. There are scattered left colonic diverticulosis changes without CT evidence of diverticulitis. Seminal vesicles, prostate, and urinary bladder are unremarkable. No abdominal wall defect is seen. No bony destructive lesion is noted. IMPRESSION: Mild diffuse fatty infiltration of the liver. Granulomatous calcifications in the spleen. Bilateral renal cortical cysts. Vascular calcification. Pancreas is morphologically intact. This does not exclude acute pancreatitis. Mild left colonic diverticulosis. <Electronically signed by Amilcar Barrera > 06/13/20 [id number]
== END ==
LOC: M RAD 09:26
PROVIDERS: ATTEND Family Medicine
DX: K76.0 Fatty (change of) liver, not elsewhere classified (principal); Q61.02 Congenital multiple renal cysts; K57.30 Diverticulosis of large intestine without perforation or abscess without bleeding; K85.90 Acute pancreatitis without necrosis or infection, unspecified
CPT/HCPCS: 74177; G0463; Q9963; Q9967

== ENCOUNTER → 2020-08-22 | Outpatient (REF) | payer MEDICARE, BC ==
[~2020-08-22] MED LIST changes: +ACYC1TAB PO; -ACYC400T PO; -GASTROGRAFIN SOLUTION 30ML (Q9963) As Ordered ONE; -ISOVUE-370 76% 100ML VIAL As Ordered ONE
[2020-08-22 12:56] LABS: HEMOGLOBIN A1c 10.3 %
[2020-08-22 13:17] LABS: BLOOD UREA NITROGEN 13 MG/DL (7-18); CALCIUM LEVEL 9.2 MG/DL (8.8-10.2); CARBON DIOXIDE LEVEL 29 MEQ/L (21-32); CHLORIDE LEVEL 107 MEQ/L (98-107); CREATININE FOR GFR 0.84 MG/DL (0.70-1.30); GLOMERULAR FILTRATION RATE > 60.0 (>49); GLUCOSE, FASTING 118 MG/DL (70-100); POTASSIUM SERUM 4.2 MEQ/L (3.5-5.1); SODIUM LEVEL 142 MEQ/L (136-145)
== END ==
LOC: M SFHCADAM 08:07
PROVIDERS: ATTEND Family Medicine
DX: E11.65 Type 2 diabetes mellitus with hyperglycemia (principal); Z12.5 Encounter for screening for malignant neoplasm of prostate
CPT/HCPCS: 80048; 83036; G0103

== ENCOUNTER → 2020-11-25 | Outpatient (REF) | payer MEDICARE, BC ==
[~2020-11-25] MED LIST changes: +LOSA25TA13 PO; -LOSA25TA14 PO
[2020-11-25 13:51] LABS: BLOOD UREA NITROGEN 10 MG/DL (7-18); CALCIUM LEVEL 9.1 MG/DL (8.8-10.2); CARBON DIOXIDE LEVEL 28 MEQ/L (21-32); CHLORIDE LEVEL 107 MEQ/L (98-107); CREATININE FOR GFR 0.82 MG/DL (0.70-1.30); GLOMERULAR FILTRATION RATE > 60.0 (>49); GLUCOSE, FASTING 150 MG/DL (70-100); POTASSIUM SERUM 4.7 MEQ/L (3.5-5.1); SODIUM LEVEL 142 MEQ/L (136-145)
== END ==
LOC: M SFHCADAM 08:01
PROVIDERS: ATTEND Family Medicine
DX: E11.65 Type 2 diabetes mellitus with hyperglycemia (principal)

== ENCOUNTER → 2020-12-02 | Outpatient (CLI) | payer MEDICARE, BC ==
[~2020-12-02] MED LIST changes: +ISOVUE-370 76% 100ML VIAL As Ordered ONE; -LOSA25TA13 PO; +LOSA25TA14 PO
--- NOTE | 2020-12-02 11:10 | REP ---
INDICATION: CORTEZ, PULMONARY FIBROSIS. COMPARISON: 02/05/2016. TECHNIQUE: Bolus of 75 mL Isovue 370 scanning through the chest with coronal and sagittal reconstructions. FINDINGS: There are granulomatous calcifications in the lateral segment of the right middle lobe unchanged. There are dependent atelectatic changes deep sulci bilaterally. There is a calcified granuloma medial basal segment right lower lobe on image 61. Sub pleural small blebs are noted with the pleural based fibrotic changes as before a calcified granuloma in the left upper lobe subpleural anterolaterally. There is a 3 x 4 mm nodule peripherally right upper lobe unchanged. No effusion or acute infiltrate. There is no pneumothorax. Some emphysematous changes are seen. Heart size not grossly enlarged. No pericardial thickening or effusion. Postsurgical changes at aortic valve plane and calcifications in distal arch of the aorta without aneurysm or dissection. Coronary artery calcifications are noted. The main, right and left pulmonary arteries are without filling defects. Nodes about the right hilum up to 9 mm with a few calcifications. Left hilar adenopathy. Densely calcified subcarinal nodes present. Fat replaced precarinal node, subcentimeter right paratracheal, AP window and prevascular space nodes seen. The upper abdomen shows no hiatal hernia. Calcifications in spleen suggest old granulomatous disease without enlargement of the spleen. Hypodensity of the liver may reflect some fatty infiltration. Gallbladder seen in part without calcified stone in the visualized segment. Pancreas grossly intact in its visible segment. Adrenal glands normal. There are cysts in the upper poles of the kidneys, the larger posteriorly in the upper pole on the left 4.7 cm and laterally right left side at 2.1 cm. Bone windows show diffuse thoracic spondylosis sternum. Manubrium, medial clavicles, visualized scapula, humeral heads and ribs without acute finding. IMPRESSION: 1. Evidence of old granulomatous disease with multiple scattered granulomas in the lung malcolm and within the mediastinal and right hilar lymph nodes as well as the spleen. 2. COPD and fibrosis with peripheral fibrotic changes some bullous emphysematous changes but no effusion, acute infiltrate or parenchymal mass. Stable sub 4 mm nodule right upper lobe as seen before. 3. Some fatty infiltration of the liver without acute finding. 4. No other significant or new change. <Electronically signed by Justin Harris > 12/02/20 [id number]
== END ==
LOC: M RAD 08:55
PROVIDERS: ATTEND Family Medicine
DX: J84.10 Pulmonary fibrosis, unspecified (principal); J44.9 Chronic obstructive pulmonary disease, unspecified; R91.1 Solitary pulmonary nodule; K76.0 Fatty (change of) liver, not elsewhere classified; E11.65 Type 2 diabetes mellitus with hyperglycemia
CPT/HCPCS: 71260; Q9967

== ENCOUNTER → 2020-12-12 | Outpatient (CLI) | payer MEDICARE, BC ==
[~2020-12-12] MED LIST changes: -ISOVUE-370 76% 100ML VIAL As Ordered ONE
--- NOTE | 2020-12-12 12:46 | REP ---
INDICATION: SWELLING/MASS. FINDINGS: Degenerative changes seen throughout the elbow. A large calcification is seen arising from the olecranon process likely secondary to triceps enthesopathy. There is a joint effusion. There is no evidence of an acute fracture. IMPRESSION: 1. Joint effusion. Radiographically occult fracture cannot be ruled out. 2. Likely enthesopathy as described above. <Electronically signed by Camden Amato > 12/12/20 [id number]
[2020-12-12 16:33] LABS: BASO # 0.1 10^3/uL (0.0-0.2); BASO % 0.9 % (0.0-1.0); EOS # 0.4 10^3/uL (0.0-0.5); EOS % 5.2 % (0.0-3.0); HEMATOCRIT 47.4 % (42.0-52.0); HEMOGLOBIN 15.9 g/dl (13.5-17.5); LYMPH # 2.5 10^3/uL (1.5-5.0); LYMPH % 29.7 % (24.0-44.0); MEAN CORPUSCULAR HEMOGLOBIN 31.7 pg (27.0-33.0); MEAN CORPUSCULAR HGB CONC 33.5 g/dl (32.0-36.5); MEAN CORPUSCULAR VOLUME 94.6 fl (80.0-96.0); MONO # 0.8 10^3/uL (0.0-0.8); NEUTROPHILS # 4.6 10^3/uL (1.5-8.5); NEUTROPHILS % 54.7 % (36.0-66.0); PLATELET COUNT, AUTOMATED 213 10^3/uL (150-450); RED BLOOD COUNT 5.01 10^6/uL (4.30-6.10); WHITE BLOOD COUNT 8.5 10^3/uL (4.0-10.0)
== END ==
LOC: M WUC 11:55
PROVIDERS: ATTEND Physician Assistant
DX: R22.31 Localized swelling, mass and lump, right upper limb (principal)

== ENCOUNTER → 2021-01-26 | Outpatient (CLI) | payer MEDICARE, BC ==
--- NOTE | 2021-01-26 11:05 | REP ---
INDICATION: STRAIN. COMPARISON: Chest 03/15/2017, CT 12/02/2020. TECHNIQUE: Four views left ribs, frontal view chest. FINDINGS: There is a minimally displaced fracture of the anterior end of the left 8th rib. No other fracture or bone lesion is seen. No infiltrate, pneumothorax or pleural effusion is seen. There is a calcified granuloma again seen in the left lung. Heart is normal in size and the mediastinal silhouette is unchanged. IMPRESSION: Minimally displaced fracture anterior end left 8th rib. No acute infiltrate or pneumothorax. No pleural effusion. <Electronically signed by Clifford Toscano > 01/26/21 1101
== END ==
LOC: M WUC 09:22
PROVIDERS: ATTEND Physician Assistant
DX: S22.32XA Fracture of one rib, left side, initial encounter for closed fracture (principal)

== ENCOUNTER → 2021-02-24 | Outpatient (REF) | payer MEDICARE, BC ==
[2021-02-24 14:00] LABS: BLOOD UREA NITROGEN 13 MG/DL (7-18); CALCIUM LEVEL 9.2 MG/DL (8.8-10.2); CARBON DIOXIDE LEVEL 29 MEQ/L (21-32); CHLORIDE LEVEL 107 MEQ/L (98-107); CREATININE FOR GFR 0.89 MG/DL (0.70-1.30); GLOMERULAR FILTRATION RATE > 60.0 (>49); GLUCOSE, FASTING 132 MG/DL (70-100); POTASSIUM SERUM 4.4 MEQ/L (3.5-5.1); SODIUM LEVEL 141 MEQ/L (136-145)
== END ==
LOC: M SFHCADAM 08:04
PROVIDERS: ATTEND Family Medicine
DX: E11.65 Type 2 diabetes mellitus with hyperglycemia (principal)

== ENCOUNTER → 2021-03-05 | Outpatient (CLI) | payer MEDICARE, BC ==
--- NOTE | 2021-03-05 10:58 | REP ---
INDICATION: Assess stenosis TECHNIQUE: Carotid ultrasonography was performed bilaterally FINDINGS: Right: CCA systolic: 73.9 centimeters/second CCA diastolic: 8.7 centimeters/second ICA systolic: 56.9 centimeters/second ICA diastolic: 16.1 centimeters/second ICA CCA ratio: 0.77 Left: CCA systolic: 83.5 centimeters/second CCA diastolic: 13.8 centimeters/second ICA systolic: 78.5 centimeters/second ICA diastolic: 23.6 centimeters/second ICA CCA ratio: 0.94 Vertebral artery: Right: Antegrade flow left: Antegrade flow Echogenic material is again seen along the carotid arterial perkins some of which casts and acoustic shadow IMPRESSION: According to the SRU criteria there is less than 50% stenosis of the internal carotid artery bilaterally. This is secondary to both calcified and noncalcified atheromatous plaque formation. <Electronically signed by Camden Amato > 03/05/21 1052
== END ==
LOC: M RAD 09:38
PROVIDERS: ATTEND Physician Assistant
DX: I65.23 Occlusion and stenosis of bilateral carotid arteries (principal)

== ENCOUNTER → 2021-07-10 | Outpatient (CLI) | payer MEDICARE, BC ==
[~2021-07-10] MED LIST changes: +LOSA25TA13 PO; -LOSA25TA14 PO
== END ==
LOC: M ADAMS 09:17
PROVIDERS: ATTEND Family Medicine
DX: J84.10 Pulmonary fibrosis, unspecified (principal); J44.9 Chronic obstructive pulmonary disease, unspecified

== ENCOUNTER → 2021-09-07 | Outpatient (REF) | payer MEDICARE, BC ==
[2021-09-07 13:21] LABS: ALBUMIN 3.8 GM/DL (3.2-5.2); ALT/SGPT 25 U/L (12-78); BILIRUBIN,TOTAL 0.5 MG/DL (0.2-1.0); BLOOD UREA NITROGEN 19 MG/DL (7-18); CALCIUM LEVEL 10.2 MG/DL (8.8-10.2); CARBON DIOXIDE LEVEL 28 MEQ/L (21-32); CHLORIDE LEVEL 107 MEQ/L (98-107); CREATININE FOR GFR 0.78 MG/DL (0.70-1.30); GLOMERULAR FILTRATION RATE > 60.0 (>49); GLUCOSE, FASTING 189 MG/DL (70-100); POTASSIUM SERUM 4.3 MEQ/L (3.5-5.1); SODIUM LEVEL 139 MEQ/L (136-145)
[2021-09-07 14:43] LABS: HEMOGLOBIN A1c 9.6 %
== END ==
LOC: M SFHCADAM 07:50
PROVIDERS: ATTEND Family Medicine
DX: Z12.5 Encounter for screening for malignant neoplasm of prostate (principal); E11.65 Type 2 diabetes mellitus with hyperglycemia
CPT/HCPCS: 80053; 83036; G0103

== ENCOUNTER 2021-10-06 10:32 | Inpatient (IN) | payer MEDICARE, BC ==
[~2021-10-06] VITALS: Ht 172.7 cm; Wt 104.6 kg
[~2021-10-06 10:32] MED LIST changes: +RIVAROXABAN 10 MG TAB (XARELTO) PO SCH
[2021-10-06 11:48] LABS: BASO # 0.1 10^3/uL (0.0-0.2); BASO % 0.8 % (0.0-1.0); EOS # 0.3 10^3/uL (0.0-0.5); EOS % 4.3 % (0.0-3.0); HEMATOCRIT 47.3 % (42.0-52.0); HEMOGLOBIN 16.2 g/dl (13.5-17.5); LYMPH # 2.3 10^3/uL (1.5-5.0); LYMPH % 28.9 % (24.0-44.0); MEAN CORPUSCULAR HEMOGLOBIN 31.8 pg (27.0-33.0); MEAN CORPUSCULAR HGB CONC 34.2 g/dl (32.0-36.5); MEAN CORPUSCULAR VOLUME 92.9 fl (80.0-96.0); MONO # 0.7 10^3/uL (0.0-0.8); MONO % 8.9 % (2.0-8.0); NEUTROPHILS # 4.5 10^3/uL (1.5-8.5); NEUTROPHILS % 56.8 % (36.0-66.0); PLATELET COUNT, AUTOMATED 215 10^3/uL (150-450); RED BLOOD COUNT 5.09 10^6/uL (4.30-6.10); WHITE BLOOD COUNT 7.9 10^3/uL (4.0-10.0)
[2021-10-06 11:57] LABS: INR 0.92; PROTHROMBIN TIME 12.8 SECONDS (12.7-14.5)
[2021-10-06 11:58] LABS: PARTIAL THROMBOPLASTIN TIME 27.5 SECONDS (25.9-37.0)
[2021-10-06 12:17] LABS: BLOOD UREA NITROGEN 15 MG/DL (7-18); CALCIUM LEVEL 9.1 MG/DL (8.8-10.2); CARBON DIOXIDE LEVEL 27 MEQ/L (21-32); CHLORIDE LEVEL 104 MEQ/L (98-107); CREATININE FOR GFR 1.07 MG/DL (0.70-1.30); GLOMERULAR FILTRATION RATE > 60.0 (>49); GLUCOSE, FASTING 320 MG/DL (70-100); POTASSIUM SERUM 4.2 MEQ/L (3.5-5.1); SODIUM LEVEL 136 MEQ/L (136-145)
[2021-10-06 13:34] LABS: RSV AMPLIFICATION NEGATIVE (NEGATIVE)
[2021-10-06] MEDS ORDERED: SPIR1AER PO (13:55)
[2021-10-06] MEDS ORDERED: BASA100I SC (13:55)
[2021-10-06] MEDS ORDERED: GLIM4TAB5 PO (13:55)
[2021-10-06] MEDS ORDERED: HOME MED LIST COMPLETE! XX SCH (14:00)
[2021-10-06] MEDS ORDERED: NITROGLYCERIN 0.4 MG SUBL TABLET SL PRN (14:15)
[2021-10-06] MEDS ORDERED: GLUCOSE 4GM CHEW TABLET PO PRN (14:15)
[2021-10-06] MEDS ORDERED: DEXTROSE 50% 50 ML SYRINGE IV PRN (14:15)
[2021-10-06] MEDS ORDERED: GLUCAGON INJ 1MG VIAL SC PRN (14:15)
[2021-10-06 16:29] VITALS: BP 176/88
[2021-10-06] MEDS: INSULIN LISPRO (NovoLOG) PER UNIT SC SCH (17:23)
[2021-10-06] MEDS ORDERED: RIVAROXABAN 10 MG TAB (XARELTO) PO SCH (18:00)
[2021-10-06 20:13] VITALS: BP 156/78
[2021-10-06 20:37] VITALS: BP 156/78
[2021-10-06] MEDS ORDERED: ASPIRIN 81MG ENTERIC TABLET PO SCH (21:00)
[2021-10-06] MEDS ORDERED: LOSARTAN 25 MG TAB PO SCH (21:00)
[2021-10-06] MEDS ORDERED: PANTOPRAZOLE 40MG TAB (PROTONIX) PO SCH (21:00)
[2021-10-06] MEDS ORDERED: INSULIN LISPRO (NovoLOG) PER UNIT SC SCH (21:00)
[2021-10-06] MEDS ORDERED: LEVEMIR (INSULIN DETEMIR) 1 UNITS/0.01ML SC SCH (21:00)
[2021-10-07 00:19] VITALS: BP 141/69
[2021-10-07 04:26] VITALS: BP 125/81
[2021-10-07 05:37] LABS: HEMATOCRIT 45.2 % (42.0-52.0); HEMOGLOBIN 15.2 g/dl (13.5-17.5); MEAN CORPUSCULAR HEMOGLOBIN 31.1 pg (27.0-33.0); MEAN CORPUSCULAR HGB CONC 33.6 g/dl (32.0-36.5); MEAN CORPUSCULAR VOLUME 92.6 fl (80.0-96.0); PLATELET COUNT, AUTOMATED 188 10^3/uL (150-450); RED BLOOD COUNT 4.88 10^6/uL (4.30-6.10); WHITE BLOOD COUNT 8.9 10^3/uL (4.0-10.0)
[2021-10-07 06:01] LABS: BLOOD UREA NITROGEN 12 MG/DL (7-18); CALCIUM LEVEL 8.8 MG/DL (8.8-10.2); CARBON DIOXIDE LEVEL 25 MEQ/L (21-32); CHLORIDE LEVEL 107 MEQ/L (98-107); CHOLESTEROL LEVEL 175 MG/DL (<200); CHOLESTEROL RISK RATIO 4.861 (<5); CREATININE FOR GFR 0.84 MG/DL (0.70-1.30); GLOMERULAR FILTRATION RATE > 60.0 (>49); GLUCOSE, FASTING 165 MG/DL (70-100); HDL CHOLESTEROL 36 MG/DL (>40); LDL CHOLESTEROL 96 MG/DL (<100); NON-HDL-C 139 MG/DL; POTASSIUM SERUM 3.7 MEQ/L (3.5-5.1); SODIUM LEVEL 139 MEQ/L (136-145); TRIGLYCERIDES LEVEL 216 MG/DL (<150)
[2021-10-07 06:10] LABS: HEMOGLOBIN A1c 9.9 %
[2021-10-07] MEDS ORDERED: TIOTROPIUM INHALER/CAPSULE (SPIRIVA) INH SCH (08:00)
[2021-10-07 08:23] VITALS: BP 121/71
[2021-10-07] MEDS ORDERED: ACYCLOVIR 200 MG CAPSULE PO SCH (09:00)
[2021-10-07] MEDS ORDERED: ATORVASTATIN 20 MG TAB PO SCH (09:00)
[2021-10-07] MEDS ORDERED: LEVEMIR (INSULIN DETEMIR) 1 UNITS/0.01ML SC SCH (09:00)
[2021-10-07] MEDS ORDERED: ASPI81TA26 PO (09:10)
[2021-10-07] MEDS: INSULIN LISPRO (NovoLOG) PER UNIT SC SCH ×2 (09:16→12:45)
[2021-10-07] MEDS ORDERED: ASPIRIN 81MG ENTERIC TABLET PO SCH (21:00)
== END 2021-10-07 14:37 | disposition home or self-care (01) | DRG 69 ==
LOC: M ED 10:32 → M ED INP 14:11 → ENRESERV 15:25 → M PCU 16:04
PROVIDERS: ADMIT Internal Medicine; ATTEND Internal Medicine
PROC: B246ZZZ Ultrasonography of Right and Left Heart (ICD-10-PCS; principal; 2021-10-07)
DX: G45.9 Transient cerebral ischemic attack, unspecified (principal); E11.9 Type 2 diabetes mellitus without complications; I10 Essential (primary) hypertension; I25.10 Atherosclerotic heart disease of native coronary artery without angina pectoris; I35.0 Nonrheumatic aortic (valve) stenosis; Z95.2 Presence of prosthetic heart valve; E66.9 Obesity, unspecified; F17.290 Nicotine dependence, other tobacco product, uncomplicated; R42 Dizziness and giddiness; R20.2 Paresthesia of skin; R53.1 Weakness; K21.9 Gastro-esophageal reflux disease without esophagitis; Z20.822 Contact with and (suspected) exposure to COVID-19; Z79.82 Long term (current) use of aspirin; Z79.4 Long term (current) use of insulin; Z79.84 Long term (current) use of oral hypoglycemic drugs; Z79.899 Other long term (current) drug therapy; Z88.5 Allergy status to narcotic agent; Z88.8 Allergy status to other drugs, medicaments and biological substances

== ENCOUNTER 2021-10-23 10:00 | Inpatient (IN) | payer MEDICARE, BC ==
[~2021-10-23 10:00] MED LIST changes: +GLIM4TAB5 PO; -RIVAROXABAN 10 MG TAB (XARELTO) PO SCH; +SPIR1AER INH
[2021-10-23 10:27] LABS: BASO # 0.1 10^3/uL (0.0-0.2); BASO % 0.8 % (0.0-1.0); EOS # 0.4 10^3/uL (0.0-0.5); EOS % 5.5 % (0.0-3.0); HEMATOCRIT 45.1 % (42.0-52.0); HEMOGLOBIN 15.7 g/dl (13.5-17.5); LYMPH # 2.2 10^3/uL (1.5-5.0); LYMPH % 29.5 % (24.0-44.0); MEAN CORPUSCULAR HEMOGLOBIN 32.2 pg (27.0-33.0); MEAN CORPUSCULAR HGB CONC 34.8 g/dl (32.0-36.5); MEAN CORPUSCULAR VOLUME 92.4 fl (80.0-96.0); MONO # 0.6 10^3/uL (0.0-0.8); MONO % 7.6 % (2.0-8.0); NEUTROPHILS # 4.2 10^3/uL (1.5-8.5); NEUTROPHILS % 56.2 % (36.0-66.0); PLATELET COUNT, AUTOMATED 199 10^3/uL (150-450); RED BLOOD COUNT 4.88 10^6/uL (4.30-6.10); WHITE BLOOD COUNT 7.5 10^3/uL (4.0-10.0)
[2021-10-23] MEDS ORDERED: ISOVUE-370 76% 100ML VIAL As Ordered ONE (10:34)
[2021-10-23 10:38] LABS: INR 0.9; PARTIAL THROMBOPLASTIN TIME 25.8 SECONDS (25.9-37.0); PROTHROMBIN TIME 12.6 SECONDS (12.7-14.5)
[2021-10-23 11:14] LABS: CK-MB VALUE MASS 3.8 NG/ML (<3.6); MB/CK RELATIVE INDEX 2.81 (< OR =4)
[2021-10-23] MEDS ORDERED: CLOP75TA2 PO (11:49)
[2021-10-23] MEDS ORDERED: ASPI-161 PO (11:49)
[2021-10-23] MEDS ORDERED: HOME MED LIST COMPLETE! XX SCH (11:50)
[2021-10-23] MEDS ORDERED: DEXTROSE 50% 50 ML SYRINGE IV PRN (12:30)
[2021-10-23] MEDS ORDERED: GLUCOSE 4GM CHEW TABLET PO PRN (12:30)
[2021-10-23] MEDS ORDERED: GLUCAGON INJ 1MG VIAL SC PRN (12:30)
[2021-10-23] MEDS ORDERED: MOM 30ML SUSPENSION UDC PO PRN (12:30)
[2021-10-23] MEDS ORDERED: MAALOX 30 ML SUSP *UDC PO PRN (12:30)
[2021-10-23] MEDS ORDERED: ACETAMINOPHEN TAB 650MG DOSE (2X325MG) PO PRN (12:30)
[2021-10-23 12:36] LABS: RSV AMPLIFICATION NEGATIVE (NEGATIVE)
[2021-10-23] MEDS: INSULIN LISPRO (NovoLOG) PER UNIT SC SCH (18:00)
[2021-10-23 20:50] VITALS: BP 148/80
[2021-10-23] MEDS ORDERED: INSULIN LISPRO (NovoLOG) PER UNIT SC SCH (21:00)
[2021-10-23] MEDS ORDERED: ASPIRIN 81MG ENTERIC TABLET PO SCH (21:00)
[2021-10-23] MEDS ORDERED: LEVEMIR (INSULIN DETEMIR) 1 UNITS/0.01ML SC SCH (21:00)
[2021-10-23] MEDS ORDERED: PANTOPRAZOLE 40MG TAB (PROTONIX) PO SCH (21:00)
[2021-10-24] VITALS: BP 158/70; O2SAT 99
[2021-10-24 04:00] VITALS: BP 134/80
[2021-10-24 05:29] LABS: HEMATOCRIT 42.6 % (42.0-52.0); MEAN CORPUSCULAR HEMOGLOBIN 32.1 pg (27.0-33.0); MEAN CORPUSCULAR HGB CONC 35.2 g/dl (32.0-36.5); PLATELET COUNT, AUTOMATED 202 10^3/uL (150-450); RED BLOOD COUNT 4.68 10^6/uL (4.30-6.10); WHITE BLOOD COUNT 8.2 10^3/uL (4.0-10.0)
[2021-10-24 05:51] LABS: BLOOD UREA NITROGEN 12 MG/DL (7-18); CALCIUM LEVEL 9.5 MG/DL (8.8-10.2); CARBON DIOXIDE LEVEL 28 MEQ/L (21-32); CHLORIDE LEVEL 107 MEQ/L (98-107); CREATININE FOR GFR 0.76 MG/DL (0.70-1.30); GLOMERULAR FILTRATION RATE > 60.0 (>49); GLUCOSE, FASTING 126 MG/DL (70-100); MAGNESIUM LEVEL 1.8 MG/DL (1.8-2.4); POTASSIUM SERUM 3.8 MEQ/L (3.5-5.1); SODIUM LEVEL 141 MEQ/L (136-145)
[2021-10-24 07:53] VITALS: BP 134/78
[2021-10-24 08:00] VITALS: BP 134/78
[2021-10-24] MEDS: INSULIN LISPRO (NovoLOG) PER UNIT SC SCH (08:59)
[2021-10-24] MEDS ORDERED: CLOPIDOGREL 75 MG TAB PO SCH (09:00)
[2021-10-24] MEDS ORDERED: LEVEMIR (INSULIN DETEMIR) 1 UNITS/0.01ML SC SCH (09:00)
[2021-10-24] MEDS ORDERED: ACYCLOVIR 200 MG CAPSULE PO SCH (09:00)
[2021-10-24] MEDS ORDERED: ATORVASTATIN 20 MG TAB PO SCH (09:00)
[2021-10-24] MEDS ORDERED: LOSARTAN 25 MG TAB PO SCH (21:00)
[2021-10-28 11:31] LABS: DRVV SCREEN 38.5 SEC
== END 2021-10-24 10:48 | disposition home or self-care (01) | DRG 66 ==
LOC: EDBD 10:00 → M ED 10:00 → M ED INP 12:36 → UNDOADMOB 12:36 → M ED INP 12:36 → M PCU 21:18 → UNDODISOB 10-24 10:48
PROVIDERS: ADMIT Family Medicine; ATTEND Family Medicine
DX: I63.81 Other cerebral infarction due to occlusion or stenosis of small artery (principal); E11.9 Type 2 diabetes mellitus without complications; I25.10 Atherosclerotic heart disease of native coronary artery without angina pectoris; K21.9 Gastro-esophageal reflux disease without esophagitis; K22.70 Barrett's esophagus without dysplasia; G47.33 Obstructive sleep apnea (adult) (pediatric); K76.0 Fatty (change of) liver, not elsewhere classified; M47.812 Spondylosis without myelopathy or radiculopathy, cervical region; E78.5 Hyperlipidemia, unspecified; J44.9 Chronic obstructive pulmonary disease, unspecified; F17.290 Nicotine dependence, other tobacco product, uncomplicated; K57.90 Diverticulosis of intestine, part unspecified, without perforation or abscess without bleeding; Z95.2 Presence of prosthetic heart valve; Z95.5 Presence of coronary angioplasty implant and graft; Z79.82 Long term (current) use of aspirin; Z79.4 Long term (current) use of insulin; Z79.899 Other long term (current) drug therapy; Z79.02 Long term (current) use of antithrombotics/antiplatelets; Z88.8 Allergy status to other drugs, medicaments and biological substances

== ENCOUNTER → 2021-12-28 | Outpatient (REF) | payer MEDICARE, BC ==
[~2021-12-28] MED LIST changes: +ASPI-161 PO; +CLOP75TA2 PO
[2021-12-28 13:43] LABS: BLOOD UREA NITROGEN 13 MG/DL (7-18); CALCIUM LEVEL 8.9 MG/DL (8.8-10.2); CARBON DIOXIDE LEVEL 28 MEQ/L (21-32); CHLORIDE LEVEL 106 MEQ/L (98-107); CREATININE FOR GFR 0.86 MG/DL (0.70-1.30); GLOMERULAR FILTRATION RATE > 60.0 (>49); GLUCOSE, FASTING 199 MG/DL (70-100); POTASSIUM SERUM 3.9 MEQ/L (3.5-5.1); SODIUM LEVEL 140 MEQ/L (136-145)
[2021-12-28 15:58] LABS: HEMOGLOBIN A1c 8.9 %
== END ==
LOC: M SFHCADAM 08:04
PROVIDERS: ATTEND Family Medicine
DX: E11.65 Type 2 diabetes mellitus with hyperglycemia (principal)

== ENCOUNTER → 2022-03-19 | Outpatient (REF) | payer MEDICARE, BC ==
[~2022-03-19] MED LIST changes: +CLOP75TA99 PO; -DOXY-350 PO; +DOXY-444 PO; -PLAV1TAB2 PO
[2022-03-19 13:35] LABS: HEMATOCRIT 42.8 % (42.0-52.0); HEMOGLOBIN 14.6 g/dl (13.5-17.5); MEAN CORPUSCULAR HEMOGLOBIN 31.4 pg (27.0-33.0); MEAN CORPUSCULAR HGB CONC 34.1 g/dl (32.0-36.5); PLATELET COUNT, AUTOMATED 196 10^3/uL (150-450); RED BLOOD COUNT 4.65 10^6/uL (4.30-6.10); WHITE BLOOD COUNT 7.4 10^3/uL (4.0-10.0)
[2022-03-19 14:28] LABS: BLOOD UREA NITROGEN 13 MG/DL (7-18); CALCIUM LEVEL 9.1 MG/DL (8.8-10.2); CARBON DIOXIDE LEVEL 27 MEQ/L (21-32); CHLORIDE LEVEL 103 MEQ/L (98-107); CREATININE FOR GFR 0.93 MG/DL (0.70-1.30); GLOMERULAR FILTRATION RATE > 60.0 (>49); GLUCOSE, FASTING 191 MG/DL (70-100); POTASSIUM SERUM 4.7 MEQ/L (3.5-5.1); SODIUM LEVEL 138 MEQ/L (136-145)
[2022-03-19 14:29] LABS: ALBUMIN 3.5 GM/DL (3.2-5.2); ALT/SGPT 21 U/L (12-78); BILIRUBIN,TOTAL 0.5 MG/DL (0.2-1.0); CHOLESTEROL LEVEL 142 MG/DL (<200); CHOLESTEROL RISK RATIO 3.155 (<5); HDL CHOLESTEROL 45 MG/DL (>40); LDL CHOLESTEROL 79 MG/DL (<100); MAU/CREAT RATIO 85.4 MCG/MG (0.0-30.0); NON-HDL-C 97 MG/DL; TOTAL PROTEIN 6.9 GM/DL (6.4-8.2); TRIGLYCERIDES LEVEL 88 MG/DL (<150)
[2022-03-19 18:58] LABS: HEMOGLOBIN A1c 8.4 %
== END ==
LOC: M SFHCADAM 07:56
PROVIDERS: ATTEND Family Medicine
DX: E78.2 Mixed hyperlipidemia (principal); I11.9 Hypertensive heart disease without heart failure; E11.65 Type 2 diabetes mellitus with hyperglycemia; I63.9 Cerebral infarction, unspecified

== ENCOUNTER → 2022-07-01 | Outpatient (REF) | payer MEDICARE, BC ==
[2022-07-01 13:02] LABS: HEMATOCRIT 43.7 % (42.0-52.0); HEMOGLOBIN 14.7 g/dl (13.5-17.5); MEAN CORPUSCULAR HEMOGLOBIN 31.1 pg (27.0-33.0); MEAN CORPUSCULAR HGB CONC 33.6 g/dl (32.0-36.5); MEAN CORPUSCULAR VOLUME 92.6 fl (80.0-96.0); PLATELET COUNT, AUTOMATED 223 10^3/uL (150-450); RED BLOOD COUNT 4.72 10^6/uL (4.30-6.10); WHITE BLOOD COUNT 8.3 10^3/uL (4.0-10.0)
[2022-07-01 13:03] LABS: ALBUMIN 3.4 G/DL (3.2-5.2); ALKALINE PHOSPHATASE 94 U/L (46-116); ALT/SGPT 15 U/L (7.0-40); AST/SGOT 15 U/L (<34); BILIRUBIN,TOTAL 0.6 MG/DL (0.3-1.2); BLOOD UREA NITROGEN 14 MG/DL (9-23); CARBON DIOXIDE LEVEL 28 MMOL/L (20-31); CHLORIDE LEVEL 105 MMOL/L (98-107); CREATININE FOR GFR 0.77 MG/DL (0.70-1.30); GLOMERULAR FILTRATION RATE > 60.0 (>42); GLUCOSE, FASTING 166 MG/DL (74-106); POTASSIUM SERUM 4.2 MMOL/L (3.5-5.1); SODIUM LEVEL 140 MMOL/L (136-145); TOTAL PROTEIN 6.6 G/DL (5.7-8.2)
[2022-07-01 13:35] LABS: FREE T4 0.99 NG/DL (0.89-1.76); THYROID STIMULATING HORMONE 5.809 uIU/ML (0.55-4.78)
[2022-07-01 13:49] LABS: MAU/CREAT RATIO 65.8 MCG/MG (0.0-30.0)
== END ==
LOC: M SFHCADAM 07:45
PROVIDERS: ATTEND Family Medicine
DX: I63.9 Cerebral infarction, unspecified (principal); E11.65 Type 2 diabetes mellitus with hyperglycemia; Z79.4 Long term (current) use of insulin

== ENCOUNTER → 2022-09-29 | Outpatient (REF) | payer MEDICARE, BC ==
[2022-09-29 13:54] LABS: BLOOD UREA NITROGEN 17 MG/DL (9-23); CALCIUM LEVEL 8.6 MG/DL (8.3-10.6); CARBON DIOXIDE LEVEL 24 MMOL/L (20-31); CHLORIDE LEVEL 104 MMOL/L (98-107); CREATININE FOR GFR 0.79 MG/DL (0.70-1.30); GLOMERULAR FILTRATION RATE > 60.0 (>42); GLUCOSE, FASTING 192 MG/DL (74-106); POTASSIUM SERUM 4.3 MMOL/L (3.5-5.1); SODIUM LEVEL 137 MMOL/L (136-145)
[2022-09-29 16:52] LABS: HEMOGLOBIN A1c 7.8 % (4.0-6.0)
== END ==
LOC: M SFHCADAM 08:00
PROVIDERS: ATTEND Family Medicine
DX: E11.29 Type 2 diabetes mellitus with other diabetic kidney complication (principal); Z12.6 Encounter for screening for malignant neoplasm of bladder
CPT/HCPCS: 80048; 83036; G0103

== ENCOUNTER → 2022-10-15 | Outpatient (CLI) | payer MEDICARE, BC ==
[~2022-10-15] MED LIST changes: +INSU100I16; +OXYC1TAB23 PO
== END ==
LOC: M ADAMS 14:37
PROVIDERS: ATTEND Urology
DX: Z01.818 Encounter for other preprocedural examination (principal); R91.8 Other nonspecific abnormal finding of lung field

== ENCOUNTER → 2022-10-15 | Outpatient (REF) | payer MEDICARE, BC ==
[~2022-10-15] MED LIST changes: -OXYC1TAB23 PO
[2022-10-15 16:43] LABS: BASO # 0.1 10^3/uL (0.0-0.2); BASO % 0.8 % (0.0-1.0); EOS # 0.5 10^3/uL (0.0-0.5); EOS % 5.5 % (0.0-3.0); HEMATOCRIT 42.5 % (42.0-52.0); HEMOGLOBIN 14.2 g/dl (13.5-17.5); LYMPH # 2.7 10^3/uL (1.5-5.0); LYMPH % 31.3 % (24.0-44.0); MEAN CORPUSCULAR HEMOGLOBIN 31.1 pg (27.0-33.0); MEAN CORPUSCULAR HGB CONC 33.4 g/dl (32.0-36.5); MONO # 0.8 10^3/uL (0.0-0.8); MONO % 9.9 % (2.0-8.0); NEUTROPHILS # 4.4 10^3/uL (1.5-8.5); NEUTROPHILS % 52.1 % (36.0-66.0); PLATELET COUNT, AUTOMATED 221 10^3/uL (150-450); RED BLOOD COUNT 4.57 10^6/uL (4.30-6.10); WHITE BLOOD COUNT 8.5 10^3/uL (4.0-10.0)
== END ==
LOC: M SFHCADAM 14:31
PROVIDERS: ATTEND Family Medicine
DX: Z01.818 Encounter for other preprocedural examination (principal)

== ENCOUNTER 2022-10-22 06:09 | Day surgery (SDC) | payer MEDICARE, BC ==
[~2022-10-22] VITALS: Ht 172.7 cm; Wt 102.1 kg
[2022-10-22] MEDS ORDERED: LR 1,000 ML IV SCH ×2 (06:35→09:00)
[2022-10-22] MEDS ORDERED: MIDAZOLAM INJ 2MG/2ML VIAL As Ordered ONE (07:11)
[2022-10-22] MEDS ORDERED: propofoL 200 MG/20 ML VIAL As Ordered ONE (07:11)
[2022-10-22] MEDS ORDERED: fentaNYL 100 MCG/2 ML INJECTION As Ordered ONE ×2 (07:11→08:14)
[2022-10-22] MEDS ORDERED: LIDOCAINE 2% 100MG/5ML SDV (FOR ANES.) As Ordered ONE (07:11)
[2022-10-22] MEDS ORDERED: ROCURONIUM BROMIDE 50MG/5ML VIAL As Ordered ONE (07:11)
[2022-10-22] MEDS ORDERED: ONDANSETRON 4MG 2ML VIAL As Ordered ONE (07:12)
[2022-10-22] MEDS ORDERED: BACITRACIN OINTMENT 30GM TUBE As Ordered ONE (07:13)
[2022-10-22] MEDS ORDERED: METOCLOPRAMIDE INJ 10MG/2ML VIAL As Ordered ONE (07:41)
[2022-10-22] MEDS ORDERED: ceFAZolin 2 GM/D5W 50 ML IV BAG As Ordered ONE (07:54)
[2022-10-22] MEDS ORDERED: ACETAMINOPHEN 1000MG 100ML IV BAG As Ordered ONE (07:55)
[2022-10-22] MEDS ORDERED: ceFAZolin SOD 2 GM in IV 1 EA IV ONE (07:55)
[2022-10-22] MEDS ORDERED: SUGAMMADEX SODIUM 500 MG/5 ML VIAL (BRIDION) As Ordered ONE (08:07)
[2022-10-22] MEDS ORDERED: ePHEDrine SULFATE 25 MG/5 ML(5MG/ML) SYRINGE As Ordered ONE (08:07)
[2022-10-22] MEDS ORDERED: HYDROMORPHONE HCL 0.5 MG/ 0.5 ML SYRINGE IV PRN (09:00)
[2022-10-22] MEDS ORDERED: ONDANSETRON 4MG 2ML VIAL IV PRN (09:00)
[2022-10-22] MEDS ORDERED: oxyCODONE 5MG TAB PO PRN (09:00)
[2022-10-22] MEDS ORDERED: fentaNYL 100 MCG/2 ML INJECTION IV PRN (09:00)
[2022-10-22] MEDS ORDERED: OXYC1TAB23 PO (09:18)
[2022-10-22] MEDS ORDERED: LevoFLOXacin 500MG/100ML IV BAG As Ordered ONE (09:25)
[2022-10-22] MEDS ORDERED: PERCOCET 5MG/325MG TAB PO PRN (09:45)
[2022-10-22 10:36] VITALS: BP 149/81; TEMP 97.8; O2SAT 92
== END 2022-10-22 10:35 | disposition home or self-care (01) ==
LOC: M SDC 06:09
PROVIDERS: ATTEND Urology
DX: N47.1 Phimosis (principal); I10 Essential (primary) hypertension; I25.10 Atherosclerotic heart disease of native coronary artery without angina pectoris; I25.2 Old myocardial infarction; R07.9 Chest pain, unspecified; Z95.5 Presence of coronary angioplasty implant and graft; E11.9 Type 2 diabetes mellitus without complications; Z86.73 Personal history of transient ischemic attack (TIA), and cerebral infarction without residual deficits; K21.9 Gastro-esophageal reflux disease without esophagitis; M54.2 Cervicalgia; R91.1 Solitary pulmonary nodule; J44.9 Chronic obstructive pulmonary disease, unspecified; Z72.0 Tobacco use; Z88.8 Allergy status to other drugs, medicaments and biological substances; Z79.899 Other long term (current) drug therapy; Z79.82 Long term (current) use of aspirin; Z79.02 Long term (current) use of antithrombotics/antiplatelets; Z79.84 Long term (current) use of oral hypoglycemic drugs
CPT/HCPCS: 54161; 88304; J0131; J0690; J1956; J2250; J2405; J2765; J3010

== ENCOUNTER → 2022-12-30 | Outpatient (REF) | payer MEDICARE, BC ==
[~2022-12-30] MED LIST changes: +OXYC1TAB23 PO
[2022-12-30 13:00] LABS: HEMATOCRIT 42.5 % (42.0-52.0); HEMOGLOBIN 14.3 g/dl (13.5-17.5); MEAN CORPUSCULAR HEMOGLOBIN 31.2 pg (27.0-33.0); MEAN CORPUSCULAR HGB CONC 33.6 g/dl (32.0-36.5); MEAN CORPUSCULAR VOLUME 92.8 fl (80.0-96.0); PLATELET COUNT, AUTOMATED 207 10^3/uL (150-450); RED BLOOD COUNT 4.58 10^6/uL (4.30-6.10); WHITE BLOOD COUNT 7.5 10^3/uL (4.0-10.0)
[2022-12-30 13:24] LABS: HEMOGLOBIN A1c 7.7 % (4.0-6.0)
[2022-12-30 13:36] LABS: MAU/CREAT RATIO 78.6 MCG/MG (0.0-30.0)
[2022-12-30 13:41] LABS: ALBUMIN 3.6 G/DL (3.2-5.2); ALKALINE PHOSPHATASE 98 U/L (46-116); ALT/SGPT 16 U/L (7.0-40); AST/SGOT 11 U/L (<34); BILIRUBIN,TOTAL 0.4 MG/DL (0.3-1.2); BLOOD UREA NITROGEN 13 MG/DL (9-23); CALCIUM LEVEL 9.1 MG/DL (8.3-10.6); CARBON DIOXIDE LEVEL 28 MMOL/L (20-31); CHLORIDE LEVEL 106 MMOL/L (98-107); CHOLESTEROL LEVEL 129 MG/DL (<200); CHOLESTEROL RISK RATIO 3.07 (<5); CREATININE FOR GFR 0.85 MG/DL (0.70-1.30); GLOMERULAR FILTRATION RATE > 60.0 (>42); GLUCOSE, FASTING 176 MG/DL (74-106); POTASSIUM SERUM 4.8 MMOL/L (3.5-5.1); SODIUM LEVEL 140 MMOL/L (136-145); TOTAL PROTEIN 6.9 G/DL (5.7-8.2); TRIGLYCERIDES LEVEL 210 MG/DL (<150)
== END ==
LOC: M SFHCADAM 07:56
PROVIDERS: ATTEND Family Medicine
DX: I25.10 Atherosclerotic heart disease of native coronary artery without angina pectoris (principal); I25.84 Coronary atherosclerosis due to calcified coronary lesion; E11.65 Type 2 diabetes mellitus with hyperglycemia; G81.90 Hemiplegia, unspecified affecting unspecified side

== ENCOUNTER → 2023-03-31 | Outpatient (REF) | payer MEDICARE, BC ==
[2023-03-31 14:28] LABS: HEMATOCRIT 43.4 % (42.0-52.0); HEMOGLOBIN 14.5 g/dl (13.5-17.5); MEAN CORPUSCULAR HEMOGLOBIN 31.5 pg (27.0-33.0); MEAN CORPUSCULAR HGB CONC 33.4 g/dl (32.0-36.5); MEAN CORPUSCULAR VOLUME 94.3 fl (80.0-96.0); PLATELET COUNT, AUTOMATED 230 10^3/uL (150-450); WHITE BLOOD COUNT 8.9 10^3/uL (4.0-10.0)
[2023-03-31 14:32] LABS: HEMOGLOBIN A1c 7.6 % (4.0-6.0)
[2023-03-31 14:49] LABS: BLOOD UREA NITROGEN 12 MG/DL (9-23); CALCIUM LEVEL 9.4 MG/DL (8.3-10.6); CARBON DIOXIDE LEVEL 30 MMOL/L (20-31); CHLORIDE LEVEL 103 MMOL/L (98-107); CREATININE FOR GFR 0.85 MG/DL (0.70-1.30); GLOMERULAR FILTRATION RATE > 60.0 (>42); GLUCOSE, FASTING 160 MG/DL (74-106); POTASSIUM SERUM 5.1 MMOL/L (3.5-5.1); SODIUM LEVEL 141 MMOL/L (136-145)
[2023-03-31 14:53] LABS: FREE T4 0.81 NG/DL (0.89-1.76)
[2023-03-31 14:54] LABS: THYROID STIMULATING HORMONE 7.315 uIU/ML (0.55-4.78)
[2023-03-31 14:55] LABS: FOLATE > 24.00 NG/ML (>5.4); VITAMIN B12 LEVEL 353 PG/ML (211-911)
== END ==
LOC: M SFHCADAM 07:56
PROVIDERS: ATTEND Family Medicine
DX: E11.29 Type 2 diabetes mellitus with other diabetic kidney complication (principal); E11.42 Type 2 diabetes mellitus with diabetic polyneuropathy

== ENCOUNTER 2023-04-21 10:27 | Day surgery (SDC) | payer MEDICARE, BC ==
[~2023-04-21] VITALS: Ht 172.7 cm; Wt 104.3 kg
[~2023-04-21 10:27] MED LIST changes: +LEVO50TA5 PO
[2023-04-21] MEDS ORDERED: LR 1,000 ML IV SCH (10:55)
[2023-04-21] MEDS ORDERED: GLUCOSE 4GM CHEW TABLET PO PRN (11:15)
[2023-04-21] MEDS ORDERED: GLUCAGON INJ 1MG VIAL SC PRN (11:15)
[2023-04-21] MEDS ORDERED: INSULIN LISPRO (NovoLOG) PER UNIT SC PRN (11:15)
[2023-04-21] MEDS ORDERED: DEXTROSE 50% 50ML SYRINGE IV PRN (11:15)
[2023-04-21] MEDS ORDERED: fentaNYL 100 MCG/2 ML INJECTION As Ordered ONE (11:21)
[2023-04-21] MEDS ORDERED: MIDAZOLAM INJ 2MG/2ML VIAL As Ordered ONE (11:21)
[2023-04-21] MEDS ORDERED: LIDOCAINE 1% MDV 20ML VIAL As Ordered ONE (12:18)
[2023-04-21] MEDS ORDERED: ceFAZolin 2 GM/D5W 50 ML IV BAG As Ordered ONE (13:13)
[2023-04-21 13:37] VITALS: BP 172/72; TEMP 98.1; O2SAT 96
== END 2023-04-21 14:20 | disposition home or self-care (01) ==
LOC: M SDC 10:27
PROVIDERS: ATTEND Internal Medicine Cardiovascular Disease
DX: G45.9 Transient cerebral ischemic attack, unspecified (principal); F41.9 Anxiety disorder, unspecified; E10.9 Type 1 diabetes mellitus without complications; I25.10 Atherosclerotic heart disease of native coronary artery without angina pectoris; Z95.5 Presence of coronary angioplasty implant and graft; I25.2 Old myocardial infarction; Z86.73 Personal history of transient ischemic attack (TIA), and cerebral infarction without residual deficits; E03.9 Hypothyroidism, unspecified; Z88.8 Allergy status to other drugs, medicaments and biological substances; Z79.899 Other long term (current) drug therapy; Z79.82 Long term (current) use of aspirin; Z79.02 Long term (current) use of antithrombotics/antiplatelets; Z79.890 Hormone replacement therapy; Z79.84 Long term (current) use of oral hypoglycemic drugs; Z46.4 Encounter for fitting and adjustment of orthodontic device
CPT/HCPCS: 33285; C1764; J0690; J1815; J2250; J3010

== ENCOUNTER 2023-05-03 07:19 | Day surgery (SDC) | payer MEDICARE, BC ==
[~2023-05-03] VITALS: Ht 172.7 cm; Wt 105.0 kg
[~2023-05-03 07:19] MED LIST changes: +BSS IRR 500ML/OMIDRIA 4ML IRR BAG (OR ONLY) As Ordered ONE; +CEFUROXIME 1MG/0.1ML INTRACAMERAL INJ As Ordered ONE; +CYCLOPENTOLATE 1% OPHTH SOLN 2ML BTL OS SCH; -INSU100I16; +INSU100I16 SC; +LIDOCAINE 1% SDV 5ML VIAL As Ordered ONE; +LOSA100T46 PO; +OFLOXACIN 0.3 % (OCUFLOX) OPTH SOL 5ML OS SCH; +PHENYLEPHRINE 2.5% OPHTH SOL 2ML OS SCH; +PROPARACAINE 0.5% OPHTH SOL 15ML OS ONE; +TROPICAMIDE 1% OPHTH SOLN 15ML OS SCH
[2023-05-03] MEDS ORDERED: MIDAZOLAM INJ 2MG/2ML VIAL As Ordered ONE ×2 (09:07→09:24)
[2023-05-03] MEDS ORDERED: fentaNYL 100 MCG/2 ML INJECTION As Ordered ONE ×2 (09:07→09:24)
[2023-05-03 09:24] VITALS: BP 147/83; TEMP 97.5; O2SAT 95
== END 2023-05-03 09:40 | disposition home or self-care (01) ==
LOC: M SDC 07:19
PROVIDERS: ATTEND Ophthalmology
DX: H25.12 Age-related nuclear cataract, left eye (principal); I48.91 Unspecified atrial fibrillation; E11.9 Type 2 diabetes mellitus without complications; I10 Essential (primary) hypertension; I25.10 Atherosclerotic heart disease of native coronary artery without angina pectoris; I25.2 Old myocardial infarction; E03.9 Hypothyroidism, unspecified; K21.9 Gastro-esophageal reflux disease without esophagitis; E78.00 Pure hypercholesterolemia, unspecified; Z95.5 Presence of coronary angioplasty implant and graft; Z95.2 Presence of prosthetic heart valve; Z86.73 Personal history of transient ischemic attack (TIA), and cerebral infarction without residual deficits; Z87.891 Personal history of nicotine dependence; Z88.8 Allergy status to other drugs, medicaments and biological substances; Z79.899 Other long term (current) drug therapy; Z79.82 Long term (current) use of aspirin; Z79.02 Long term (current) use of antithrombotics/antiplatelets; Z79.890 Hormone replacement therapy; Z79.84 Long term (current) use of oral hypoglycemic drugs
CPT/HCPCS: 66984; J0697; J1097; J2250; J3010; V2632

== ENCOUNTER → 2023-05-19 | Outpatient (REF) | payer MEDICARE, BC ==
[~2023-05-19] MED LIST changes: -BSS IRR 500ML/OMIDRIA 4ML IRR BAG (OR ONLY) As Ordered ONE; -CEFUROXIME 1MG/0.1ML INTRACAMERAL INJ As Ordered ONE; -CYCLOPENTOLATE 1% OPHTH SOLN 2ML BTL OS SCH; -LIDOCAINE 1% SDV 5ML VIAL As Ordered ONE; -OFLOXACIN 0.3 % (OCUFLOX) OPTH SOL 5ML OS SCH; -PHENYLEPHRINE 2.5% OPHTH SOL 2ML OS SCH; -PROPARACAINE 0.5% OPHTH SOL 15ML OS ONE; -TROPICAMIDE 1% OPHTH SOLN 15ML OS SCH
[2023-05-19 13:42] LABS: THYROID STIMULATING HORMONE 5.087 uIU/ML (0.55-4.78)
[2023-05-19 13:43] LABS: FREE T4 1.06 NG/DL (0.89-1.76)
== END ==
LOC: M SFHCADAM 07:53
PROVIDERS: ATTEND Family Medicine
DX: E03.9 Hypothyroidism, unspecified (principal)

== ENCOUNTER → 2023-08-11 | Outpatient (REF) | payer MEDICARE, BC ==
[~2023-08-11] MED LIST changes: -ASPI-161 PO; +ASPI-615 PO
[2023-08-11 13:21] LABS: BLOOD UREA NITROGEN 18 MG/DL (9-23); CARBON DIOXIDE LEVEL 30 MMOL/L (20-31); CHLORIDE LEVEL 104 MMOL/L (98-107); CREATININE FOR GFR 0.87 MG/DL (0.70-1.30); GLOMERULAR FILTRATION RATE > 60.0 (>42); GLUCOSE, FASTING 218 MG/DL (74-106); POTASSIUM SERUM 4.5 MMOL/L (3.5-5.1); SODIUM LEVEL 138 MMOL/L (136-145)
[2023-08-11 13:22] LABS: FREE T4 0.96 NG/DL (0.89-1.76); THYROID STIMULATING HORMONE 6.141 uIU/ML (0.55-4.78)
[2023-08-11 13:42] LABS: HEMOGLOBIN A1c 7.8 % (4.0-6.0)
== END ==
LOC: M SFHCADAM 07:56
PROVIDERS: ATTEND Family Medicine
DX: E03.9 Hypothyroidism, unspecified (principal); E11.65 Type 2 diabetes mellitus with hyperglycemia

== ENCOUNTER → 2023-08-16 | Outpatient (CLI) | payer MEDICARE, BC | LOC: M ADAMS 11:41 | PROVIDERS: ATTEND Family Medicine | DX: M47.812 Spondylosis without myelopathy or radiculopathy, cervical region (principal); R20.0 Anesthesia of skin; M50.33 Other cervical disc degeneration, cervicothoracic region; R05.3 Chronic cough; I11.9 Hypertensive heart disease without heart failure ==

== ENCOUNTER → 2023-12-05 | Outpatient (CLI) | payer MEDICARE, BC ==
[~2023-12-05] MED LIST changes: +DOXY-440 PO; -DOXY-444 PO
[2023-12-05 13:17] LABS: THYROID STIMULATING HORMONE 4.505 uIU/ML (0.55-4.78)
[2023-12-05 13:18] LABS: FREE T4 0.97 NG/DL (0.89-1.76)
[2023-12-05 13:24] LABS: BLOOD UREA NITROGEN 24 MG/DL (9-23); CALCIUM LEVEL 9.6 MG/DL (8.3-10.6); CARBON DIOXIDE LEVEL 27 MMOL/L (20-31); CHLORIDE LEVEL 107 MMOL/L (98-107); CREATININE FOR GFR 1.21 MG/DL (0.70-1.30); GLOMERULAR FILTRATION RATE > 60.0 (>42); GLUCOSE, FASTING 232 MG/DL (74-106); POTASSIUM SERUM 4.6 MMOL/L (3.5-5.1); SODIUM LEVEL 139 MMOL/L (136-145)
== END ==
LOC: M PLALAB 08:15
PROVIDERS: ATTEND Family Medicine
DX: E03.9 Hypothyroidism, unspecified (principal); R60.0 Localized edema; Z12.5 Encounter for screening for malignant neoplasm of prostate; R06.02 Shortness of breath
CPT/HCPCS: 36415; 80048; 83880; 84439; 84443; G0103

== ENCOUNTER → 2023-12-06 | Outpatient (REF) | payer MEDICARE, BC ==
[2023-12-06 13:31] LABS: HEMOGLOBIN A1c 8.2 % (4.0-6.0)
== END ==
LOC: M SFHCADAM 09:04
PROVIDERS: ATTEND Family Medicine
DX: E11.65 Type 2 diabetes mellitus with hyperglycemia (principal)

== ENCOUNTER → 2024-01-19 | Outpatient (REF) | payer MEDICARE, BC ==
[2024-01-19 15:06] LABS: THYROID STIMULATING HORMONE 3.058 uIU/ML (0.55-4.78)
[2024-01-19 15:07] LABS: FREE T4 1.41 NG/DL (0.89-1.76)
== END ==
LOC: M SFHCADAM 09:54
PROVIDERS: ATTEND Family Medicine
DX: E03.9 Hypothyroidism, unspecified (principal)

== ENCOUNTER → 2024-02-16 | Outpatient (REF) | payer MEDICARE, BC ==
[2024-02-16 13:56] LABS: BLOOD UREA NITROGEN 21 MG/DL (9-23); CALCIUM LEVEL 9.6 MG/DL (8.3-10.6); CARBON DIOXIDE LEVEL 29 MMOL/L (20-31); CHLORIDE LEVEL 104 MMOL/L (98-107); CREATININE FOR GFR 1.13 MG/DL (0.70-1.30); GLOMERULAR FILTRATION RATE > 60.0 (>42); GLUCOSE, FASTING 216 MG/DL (74-106); POTASSIUM SERUM 4.3 MMOL/L (3.5-5.1); SODIUM LEVEL 139 MMOL/L (136-145)
[2024-02-16 14:12] LABS: HEMOGLOBIN A1c 7.9 % (4.0-6.0)
== END ==
LOC: M SFHCADAM 07:56
PROVIDERS: ATTEND Family Medicine
DX: E11.65 Type 2 diabetes mellitus with hyperglycemia (principal)

== ENCOUNTER → 2024-08-16 | Outpatient (REF) | payer MEDICARE, BC ==
[2024-08-16 13:48] LABS: PSA SCREENING 0.77 NG/ML (< 4.00)
[2024-08-16 13:49] LABS: ALBUMIN 3.5 G/DL (3.2-5.2); BILIRUBIN,TOTAL 0.4 MG/DL (0.3-1.2); CALCIUM LEVEL 9.2 MG/DL (8.3-10.6); CHOLESTEROL RISK RATIO 3.72 (<5); CREATININE FOR GFR 1.28 MG/DL (0.70-1.30); GLOMERULAR FILTRATION RATE 59.5 (>42); LDL CHOLESTEROL 67.4 MG/DL (<100); POTASSIUM SERUM 4.3 MMOL/L (3.5-5.1); TOTAL PROTEIN 6.9 G/DL (5.7-8.2)
[2024-08-16 13:53] LABS: FREE T4 1.01 NG/DL (0.89-1.76); HEMATOCRIT 38.3 % (42.0-52.0); HEMOGLOBIN 12.5 g/dl (13.5-17.5); MEAN CORPUSCULAR HEMOGLOBIN 30.9 pg (27.0-33.0); MEAN CORPUSCULAR HGB CONC 32.6 g/dl (32.0-36.5); MEAN CORPUSCULAR VOLUME 94.6 fl (80.0-96.0); PLATELET COUNT, AUTOMATED 202 10^3/uL (150-450); RED BLOOD COUNT 4.05 10^6/uL (4.30-6.10); THYROID STIMULATING HORMONE 8.595 uIU/ML (0.55-4.78); WHITE BLOOD COUNT 8.5 10^3/uL (4.0-10.0)
[2024-08-16 14:07] LABS: HEMOGLOBIN A1c 7.8 % (4.0-6.0)
[2024-08-16 14:12] LABS: CREATININE, URINE 136.7 MG/DL; MAU/CREAT RATIO 13.8 MCG/MG (0.0-30.0)
== END ==
LOC: M SFHCADAM 07:53
PROVIDERS: ATTEND Family Medicine
DX: E11.65 Type 2 diabetes mellitus with hyperglycemia (principal); E03.9 Hypothyroidism, unspecified; J84.10 Pulmonary fibrosis, unspecified; Z12.5 Encounter for screening for malignant neoplasm of prostate; I11.9 Hypertensive heart disease without heart failure
CPT/HCPCS: 80053; 80061; 82043; 83036; 84439; 84443; 85027; G0103

== ENCOUNTER → 2024-09-12 | Outpatient (CLI) | payer MEDICARE, BC | LOC: M RAD 07:16 | PROVIDERS: ATTEND Family Medicine | DX: J43.9 Emphysema, unspecified (principal); I25.10 Atherosclerotic heart disease of native coronary artery without angina pectoris; I70.0 Atherosclerosis of aorta; I77.810 Thoracic aortic ectasia; N28.1 Cyst of kidney, acquired; J84.9 Interstitial pulmonary disease, unspecified ==

== ENCOUNTER → 2024-10-03 | Outpatient (REF) | payer MEDICARE, BC ==
[~2024-10-03] MED LIST changes: +ACYC-438 PO; -ACYC1TAB PO
[2024-10-03 17:32] LABS: FREE T4 1.16 NG/DL (0.89-1.76)
[2024-10-03 17:33] LABS: THYROID STIMULATING HORMONE 4.424 uIU/ML (0.55-4.78)
== END ==
LOC: M SFHCADAM 07:54
PROVIDERS: ATTEND Family Medicine
DX: E03.9 Hypothyroidism, unspecified (principal)

== ENCOUNTER → 2025-01-03 | Outpatient (CLI) | payer MEDICARE, BC ==
[~2025-01-03] MED LIST changes: +ACYC200C10 PO; -ACYC200C8 PO; +METHACHOLINE KIT (6 VIAL.NEB PREMIX) INH ONE
== END ==
LOC: M CARPUL 07:49
PROVIDERS: ATTEND Internal Medicine Pulmonary Disease
DX: R06.02 Shortness of breath (principal)
CPT/HCPCS: 94070; 95070; J7674

== ENCOUNTER → 2025-01-17 | Outpatient (REF) | payer MEDICARE, BC ==
[~2025-01-17] MED LIST changes: -METHACHOLINE KIT (6 VIAL.NEB PREMIX) INH ONE
[2025-01-17 15:23] LABS: CALCIUM LEVEL 9.1 MG/DL (8.3-10.6); CARBON DIOXIDE LEVEL 28.0 MMOL/L (20-31); CHLORIDE LEVEL 103.0 MMOL/L (98-107); CREATININE FOR GFR 1.37 MG/DL (0.70-1.30); GLOMERULAR FILTRATION RATE 54.8 (>42); POTASSIUM SERUM 4.5 MMOL/L (3.5-5.1); SODIUM LEVEL 142.0 MMOL/L (136-145)
[2025-01-17 15:49] LABS: ESTIMATED AVERAGE GLUCOSE 189.0 MG/DL (60-110)
== END ==
LOC: M SFHCADAM 07:47
PROVIDERS: ATTEND Family Medicine
DX: E11.29 Type 2 diabetes mellitus with other diabetic kidney complication (principal)

== ENCOUNTER → 2025-03-07 | Outpatient (REF) | payer MEDICARE, BC ==
[~2025-03-07] MED LIST changes: +METF-728 PO; -METF-882 PO
[2025-03-07 17:30] LABS: BASO # 0.1 10^3/uL (0.0-0.2); BASO % 0.9 % (0.0-1.0); EOS # 0.3 10^3/uL (0.0-0.5); EOS % 3.1 % (0.0-3.0); LYMPH # 2.8 10^3/uL (1.5-5.0); LYMPH % 29.6 % (24.0-44.0); MONO # 0.8 10^3/uL (0.0-0.8); MONO % 8.8 % (2.0-8.0); NEUTROPHILS # 5.3 10^3/uL (1.5-8.5); NEUTROPHILS % 57.1 % (36.0-66.0); PLATELET COUNT, AUTOMATED 181 10^3/uL (150-450)
[2025-03-07 18:04] LABS: ALT/SGPT 19.0 U/L (7.0-40); AST/SGOT 21.0 U/L (<34); CALCIUM LEVEL 9.6 MG/DL (8.3-10.6); CARBON DIOXIDE LEVEL 29.0 MMOL/L (20-31); CHLORIDE LEVEL 100.0 MMOL/L (98-107); CREATININE FOR GFR 1.4 MG/DL (0.70-1.30); GLOMERULAR FILTRATION RATE 53.4 (>42); POTASSIUM SERUM 4.5 MMOL/L (3.5-5.1); SODIUM LEVEL 141.0 MMOL/L (136-145)
== END ==
LOC: M SFHCADAM 13:36
PROVIDERS: ATTEND Physician Assistant Medical
DX: R10.13 Epigastric pain (principal); R14.0 Abdominal distension (gaseous); R19.5 Other fecal abnormalities

== ENCOUNTER → 2025-03-07 | Outpatient (CLI) | payer MEDICARE, BC | LOC: M ADAMS 13:39 | PROVIDERS: ATTEND Physician Assistant Medical | DX: R10.13 Epigastric pain (principal); R14.0 Abdominal distension (gaseous); R19.5 Other fecal abnormalities ==

== ENCOUNTER → 2025-04-25 | Outpatient (REF) | payer MEDICARE, BC ==
[2025-04-25 15:11] LABS: CALCIUM LEVEL 8.7 MG/DL (8.3-10.6); CARBON DIOXIDE LEVEL 30.0 MMOL/L (20-31); CHLORIDE LEVEL 98.0 MMOL/L (98-107); CREATININE FOR GFR 1.28 MG/DL (0.70-1.30); GLOMERULAR FILTRATION RATE 59.5 (>42); POTASSIUM SERUM 4.4 MMOL/L (3.5-5.1); SODIUM LEVEL 136.0 MMOL/L (136-145)
[2025-04-25 15:12] LABS: FREE T4 1.25 NG/DL (0.89-1.76)
[2025-04-25 15:41] LABS: ESTIMATED AVERAGE GLUCOSE 189.0 MG/DL (60-110)
== END ==
LOC: M SFHCADAM 07:56
PROVIDERS: ATTEND Family Medicine
DX: E03.9 Hypothyroidism, unspecified (principal); E11.42 Type 2 diabetes mellitus with diabetic polyneuropathy